=== PATIENT | female | born 2000 | race Caucasian/White ===

== ENCOUNTER 2021-12-12 13:22 | Outpatient (REF) | payer MEDICAID, SELFPAY ==
--- NOTE | 2021-12-12 12:20 | PAPFT_PTH ---
PATIENT: Elise Cotto LOC: [facility] U#:[id number] AGE/SX: 21/F ROOM: RE12/12/[address]: Erin Díaz MD : 2000 BED: DIS: 12/12/2021 SPEC #: [id number] RECD: 12/12/21 17:08 STATUS: ADDY DEL ANGEL #: [id number] TROY: 12/12/21 12:[address]: Erin Díaz DEPT: [facility] Cytology RECD BY: Lisa Butcher Tissues: 1 - CX/ENDOCX FOR PAP SMEARS Procedures: PAP THIN PREP/UVM Screening Comments: [id number] (CHLAMYDIA/GC)
[2021-12-16 08:01] LABS: Chlamydia Result Negative (Negative); GC Result Negative (Negative)
== END 2021-12-12 13:23 | disposition home or self-care (01) ==
LOC: LBN 13:22
PROVIDERS: PCP Obstetrics & Gynecology; Visit Provider Obstetrics & Gynecology
DX: Z11.3 Encounter for screening for infections with a predominantly sexual mode of transmission (principal); Z12.4 Encounter for screening for malignant neoplasm of cervix
CPT/HCPCS: 87491; 87591; 88142

== ENCOUNTER → 2022-02-03 00:48 | Outpatient (CLI) | payer MEDICAID, SELFPAY ==
--- OUTSIDE RECORDS SUMMARY | 2022-02-03 00:53 | XMS_ITS | Clinical Summary ---
:2000 Author Organization [facility] Address [address] [place] [address] Care Team Providers Name Role Phone Unknown, Provider Primary Care Provider Encounters Date Type Specialty Care Team Description 12/12/2021 Lab Requisition Clinical Laboratory Erin Díaz En counter for other MD Jam general examina tion from Last 3 Months Social History Tobacco Use Types Packs/Day Years Used Date Never Assessed Sex Assigned at Date Recorded Not on file Plan of Treatment Health Maintenance Due Date Last Done Comments Hepatitis C Screen 2000 COVID-19 Vaccine (1) 02/08/2004 Procedures Procedure Name Priority Date/Time Associated Diagnosis Comme nts PAP TEST Today 12/12/2021 12:20 Encounter for other Resu lts for this EDT general examination procedur e are in the results section. CHLAMYDIA/N. Today 12/12/2021 12:20 Results for this GONORRHOEAE EDT procedure are i n AMPLIFIED RNA, the results THINPREP section. from Last 3 Months Results PAP TEST (12/12/2021 12:20 EDT) Specimens A. Cervix and/or [facility] Endocervix , ThinPrep CENTER Imaging System with LABORATORY Manual Evaluation SERVICES Specimen Adequacy Satisfactory for [facility] Evaluation - CENTER transformation zone LABORATORY component present SERVICES General Negative for [facility] intraepithelial CENTER lesion or malignancy LABORATORY SERVICES Descriptive Shift in eze [facility] Diagnosis present suggestive of CENTER bacterial vaginosis. LABORATORY SERVICES Attestation . [facility] signed by JANIS Roy CT(ASCP ) on SERVICES 12/19/2021 at 134 4 Clinical History See below [facility] Performing Lab [facility] Scanned Images [facility] Specimen Pap Test - Cervix and/or Endocervix Performing Organization Address City/State/ZIP Code Phon e Number [facility] [address] [place] [address] SERVICES CHLAMYDIA/N. GONORRHOEAE AMPLIFIED RNA, THINPREP (12/12/2021 12:20 EDT) Pathologist Sig nature Gonococcus Result Negative Negative [facility] Chlamydia Result Negative Negative [facility] Specimen Pap Test - Cervix and/or Endocervix Performing Organization Address City/State/ZIP Code Phon e Number [facility] [address] [place] [address] SERVICES from Last 3 Months Care Teams Sap Bw Bi Developer Relationship Specialty Start Date End Date Unknown, Provider, PCP - General 04/18/17
--- OUTSIDE RECORDS SUMMARY | 2022-02-03 00:53 | XMS_ITS | Encounter Summary ---
:2000 Author Organization [facility] Address [address] [place] [address] Care Team Providers Name Role Phone Unknown, Provider Primary Care Provider Encounter Details Date Type Department Care Team Description 04/18/2017 Historical Results [facility] - Joselyn Roy Only [facility] - Main [place] us Brock MD [address] [place] [address] [place], [place] [phone] Social History Tobacco Use Types Packs/Day Years Used Date Never Assessed Sex Assigned at Date Recorded Not on file documented as of this encounter Plan of Treatment Not on filedocumented as of this encounter Procedures Procedure Name Priority Date/Time Associated Comments Diagnosis COMPLETE BLOOD COUNT Routine 04/18/2017 21:21 Res ults for this WITH DIFFERENTIAL EDT procedure are in (AUTO) the results section. THYROID CASCADE Routine 04/18/2017 21:21 Results for this EDT procedure are i n the results section. DRUG SCREEN, Routine 04/18/2017 21:21 Results for this PRESCRIPTION/OTC, EDT procedure are in URINE the results section. C REACTIVE PROTEIN Routine 04/18/2017 21:21 Resul ts for this EDT procedure are i n the results section. COMPREHENSIVE Routine 04/18/2017 21:21 Results fo r this METABOLIC PANEL (CMP) EDT proced ure are in the results section. documented in this encounter Results THYROID CASCADE (04/18/2017 21:21 EDT) Pathologist Sig nature TSH 1.63 0.35 - 5.50 uIU/mL [facility] Specimen Narrative [facility] - 017 22:42 EDT Does PT Have a Latex Allergy? NO Performing Organization Address City/State/ZIP Code Phon e Number [facility] [address] [place] [address] [facility] (ABNORMAL) C REACTIVE PROTEIN (04/18/2017 21:21 EDT) Pathologist Sig nature C-Reactive Protein 3.14 (H) 0.0 - 3.0 mg/L [facility] Specimen Narrative [facility] - 017 22:42 EDT Does PT Have a Latex Allergy? NO Performing Organization Address City/State/ZIP Code Phon e Number [facility] [address] [place] [address] [facility] (ABNORMAL) COMPREHENSIVE METABOLIC PANEL (CMP) (04/18/2017 21:21 EDT) ALBUMIN - [facility] 3.7 3.4 - 5.0 [facility] g/dL [facility] ALKALINE 99 41 - 126 U/L [facility] PHOSPHATASE - [facility] BILIRUBIN TOTAL 0.4 0.0 - 1.0 [facility] mg/dL [facility] BUN - [facility] 10 7 - 18 mg/dL [facility] CALCIUM - [facility] 8.7 8.5 - 10.1 [facility] mg/dL [facility] Chloride 104 98 - 107 [facility] mEq/L [facility] CO2 Total 27 21 - 32 mEq/L [facility] CREATININE 0.59 0.5 - 1.3 [facility] mg/dL [facility] eGFR >60 [facility] Comment: [facility] Chronic renal impairment is defined as GFR <60 Multiply result by 1.210 for patients . eGFR calculated using the IDMS-traceable MDRD Study Equation. ??(effective 05/21/2014) Anion Gap 7 5 - 15 [facility] GLUCOSE - [facility] 126 (H) 70 - 100 [facility] mg/dL [facility] Potassium 3.4 (L) 3.5 - 5.0 [facility] mEq/L [facility] Sodium 138 135 - 145 [facility] mEq/L [facility] TOTAL PROTEIN - 8.4 (H) 6.4 - 8.2 [facility] gm/dl [facility] SGOT/AST - [facility] 17 10 - 37 U/L [facility] SGPT/ALT - [facility] 33 12 - 78 U/L [facility] Specimen Narrative [facility] - 017 22:42 EDT Does PT Have a Latex Allergy? NO Performing Organization Address City/State/ZIP Code Phon e Number [facility] [address] [place], [place] [id number] [place] [address] LAB (ABNORMAL) COMPLETE BLOOD COUNT WITH DIFFERENTIAL (AUTO) (04/18/2017 21:21 EDT) Pathologist Sig nature ABSOLUTE NEUTROPHIL 6.00 1.7 - 7.0 [facility] COUN - [facility] 10e3/ul [facility] BASO # - [facility] 0.04 0.0 - 0.3 [facility] 10e3/uL [facility] BASO % - [facility] 0 0 - 2 % [facility] EOS # - [facility] 0.93 (H) 0.05 - 0.5 [facility] 10e3/uL [facility] EOS % - [facility] 8 (H) 0 - 5 % [facility] GRAN % - [facility] 50 40 - 80 % [facility] HEMATOCRIT - [facility] 40.3 34.0 - 47.0 % [facility] HEMOGLOBIN - [facility] 13.0 11.2 - 15.7 [facility] g/dl [facility] IG# - [facility] 0.04 0 - 0.07 [facility] 10e3/uL [facility] IG% - [facility] 0.3 0 - 0.9 % [facility] LYMPH # - [facility] 4.28 (H) 0.9 - 2.9 [facility] 10e3/uL [facility] LYMPH% - [facility] 36 20 - 40 % [facility] MEAN CORPUSCULAR HGB 26.8 26 - 34 pg [facility] MEAN CORPUSCULAR HGB 32.3 31 - 36 g/dL [facility] CONC [facility] LAB MEAN CELL VOLUME - 83.1 77 - 100 fl [facility] MONO # - [facility] 0.78 0.3 - 0.9 [facility] 10e3/uL [facility] MONO% - [facility] 7 0 - 12 % [facility] PLATELET COUNT 444 (H) 150 - 400 [facility] 10e3/ul [facility] RED BLOOD COUNT - 4.85 3.8 - 5.2 [facility] 10e6/ul C[facility] LAB RED CELL DISTRI WIDTH 13.9 11.8 - 15.6 % [facility] ME D - [facility] LAB WHITE BLOOD COUNT - 12.1 (H) 3.5 - 10.5 [facility] 10e3/ul [facility] LAB Specimen Narrative [facility] - 017 22:06 EDT Does PT Have a Latex Allergy? NO Performing Organization Address City/State/ZIP Code Phon e Number [facility] [address] [place], [place] [phone] [place] [address] LAB (ABNORMAL) DRUG SCREEN, PRESCRIPTION/OTC, URINE (04/18/2017 21:21 EDT) AMPHETAMINES NEG NEG [facility] BARBITURATES,UR - NEG NEG [facility] BENZODIAZEPINES NEG NEG [facility] COCAINE,URINE - [facility] NEG NEG [facility] MAMP NEG NEG [place] (METHAMPHETAMINES - [facility] CENTER LAB MARIJUANA,URINE - POS (A) NEG [facility] MTD (METHADONE) - NEG NEG [facility] OPIATES,URINE - [facility] NEG NEG [facility] OXY (OXYCODONE) - NEG NEG [facility] PCP (PHENCYCLIDINE) NEG NEG [place] [facility] PROPOXYPHENE (PPX) - NEG NEG [facility] TRICYCLIC NEG NEG [place] ANTIDEPRESSANTS - Comment: [facility] Drug Class ?Cutoff Concent ration CENTER LAB Amphetamines (AMP) ?500 ng /ml Barbiturates (BAR) ?200 ng /ml Benzodiazepines (BZO) ? 150 ng/m l Cocaine (TONE) ? 150 ng/ml Methamphetamine (mAMP) ?500 ng/m l Methadone (MTD) ? 200 n g/ml Opiates (OPI) ? 100 ng/ml Oxycodone (OXY) ? 100 n g/ml Phencyclidine (PCP) ?25 ng /ml Tetrahydrocannabinol (THC) ? 50 ng/ml Propoxyphene (PPX) ?300 ng /ml Tricyclic antidepressants (TCA) ? 300 ng/ml This is a screening assay only, intended for use in cl inical monitoring or management of patients. False positive o r false negative results can occur. If confirmation test ing is needed, please call the lab. Specimens are retained in the laboratory for 7 days. Specimen Narrative [facility] - 017 22:21 EDT Does PT Have a Latex Allergy? NO Performing Organization Address City/State/ZIP Code Phon e Number [facility] [address] LAB documented in this encounter Visit Diagnoses Not on filedocumented in this encounter Care Teams Supervisor Rice Milling Relationship Specialty Start Date End Date Unknown, Provider, PCP - General 04/18/17 documented as of this encounter
--- OUTSIDE RECORDS SUMMARY | 2022-02-03 00:53 | XMS_ITS | Encounter Summary ---
:2000 Author Organization [facility] Address [address] [place] [address] Care Team Providers Name Role Phone Unknown, Provider Primary Care Provider Encounter Details Date Type Department Care Team Description 12/12/2021 Lab Requisition [facility] Erin Díaz, Encounter for other Pathology & MD general examination Laboratory Medicine [address] [place], [place] [address] [facility] [id number] [place], [place] [id number] Social History Tobacco Use Types Packs/Day Years Used Date Never Assessed Sex Assigned at Date Recorded Not on file documented as of this encounter Plan of Treatment Not on filedocumented as of this encounter Procedures Procedure Name Priority Date/Time Associated Diagnosis Comme nts PAP TEST Today 12/12/2021 12:20 Encounter for other Resu lts for this EDT general examination procedur e are in the results section. CHLAMYDIA/N. Today 12/12/2021 12:20 Results for this GONORRHOEAE EDT procedure are i n AMPLIFIED RNA, the results THINPREP section. documented in this encounter Results PAP TEST (12/12/2021 12:20 EDT) Specimens A. Cervix and/or [facility] Endocervix , ThinPrep CENTER Imaging System with LABORATORY Manual Evaluation SERVICES Specimen Adequacy Satisfactory for [facility] Evaluation - CENTER transformation zone LABORATORY component present SERVICES General Negative for [facility] Categorization intraepithelial CENTER lesion or malignancy LABORATORY SERVICES Descriptive Shift in eze [facility] Diagnosis present suggestive of CENTER bacterial vaginosis. LABORATORY SERVICES Attestation . [facility] signed by JANIS Roy CT(ASCP ) on SERVICES 12/19/2021 at 134 4 Clinical History See below [facility] Performing Lab [facility] Scanned Images [facility] Specimen Pap Test - Cervix and/or Endocervix Performing Organization Address City/State/ZIP Code Phon e Number [facility] [address] [place] [address] SERVICES CHLAMYDIA/N. GONORRHOEAE AMPLIFIED RNA, THINPREP (12/12/2021 12:20 EDT) Pathologist Sig nature Gonococcus Result Negative Negative [facility] Chlamydia Result Negative Negative [facility] SERVICES Specimen Pap Test - Cervix and/or Endocervix Performing Organization Address City/[facility]/ZIP Code Phon e Number [facility] [address] [place] [address] SERVICES documented in this encounter Visit Diagnoses Diagnosis Encounter for other general examination documented in this encounter Care Teams Transit Vehicle Inspector Relationship Specialty Start Date End Date Unknown, Provider, PCP - General 04/18/17 documented as of this encounter
--- NOTE | 2022-02-03 06:45 | DI.US_ITS ---
Exam(s) US PELVIS TRANSVAGINAL EXAM: US PELVIS TRANSVAGINAL CLINICAL HISTORY: infertility, N97.9 TECHNIQUE: Ultrasound of the pelvis was performed both transabdominal and transvaginal. COMPARISON: No exams were available for comparison FINDINGS: UTERUS: Retroverted. There is fluid around the fundus the uterus. Measures 5.6 cm length x 3.5 cm AP x 4.6 cm wide. There are no uterine fibroids. Endometrial thickness measures 7-8 mm. There is no fluid in the endometrial canal. CERVIX: There are no obvious nabothian cysts. RIGHT OVARY: Measures 3 x 2.8 x 1.8 cm No significant cysts nor masses evident in the right ovary. LEFT OVARY: Measures 4 x 2.9 x 4.6 cm Contains a 1.8 x 2.2 x 2.4 cyst as well as a 1.6 x 1.6 x 1.7 cm complex avascular cyst CUL-DE-SAC: There is fluid in both adnexal regions. Also round the fundus of the uterus IMPRESSION: 1. Retroverted nongravid uterus 2. Two findings in left ovary, including a an 18 x 22 millimeter simple cyst as well as a more comple x cyst measuring 1.6 x 1.7 cm. There is some fluid in the adnexal regions and around the fundus of t he uterus. 3. Although patient appears to claims to have had right oophorectomy, this does not appear to be the case here. There is a structure in the right adnexa which has appearance of a right ovary containing multiple small 5 sub cm follicles. DATA REPOSITORY:
== END ==
PROVIDERS: PCP Family Medicine; Visit Provider Obstetrics & Gynecology
DX: N97.9 Female infertility, unspecified (principal); N83.292 Other ovarian cyst, left side
CPT/HCPCS: 76830; 76856

== ENCOUNTER 2022-11-27 00:06 | Outpatient (CLI) | payer MEDICAID, SELFPAY ==
--- NOTE | 2022-11-27 10:45 | DI.RAD_ITS ---
Exam(s) RF HYSTEROSALPINGOGRAM EXAM: RF HYSTEROSALPINGOGRAM CLINICAL HISTORY: infertility,N97.9 TECHNIQUE: 2D and realtime digital imaging was performed. CONTRAST MATERIAL: Water soluble contrast was administered. COMPARISON: No exams were available for comparison FINDINGS: Fluoroscopically-guided hysterosalpingogram. The cervical opening was cannulated by Dr. Madrid. Th en under fluoroscopic guidance, water-soluble contrast was injected in a retrograde fashion. The uterus fills normally, with no evidence of contour abnormality, filling defect, septum, stricture , mass, or bicornuate configuration. There was prompt visualization of the fallopian tubes. There wa s contrast spill from the left fallopian tube. No definite spill seen from right however there was s ignificant contrast surrounding the tube which could obscure spilling.. IMPRESSION: Left fallopian tube patent. No definite spill from right fallopian tube. RADIATION DOSE DELIVERED: samuel Salter=23.8 mGy
[2022-11-27] MEDS: Omnipaque 350 MG/ML 50 ML BTL IJ (10:48)
== END 2022-11-27 00:26 ==
LOC: DI 00:07
PROVIDERS: PCP Family Medicine; Visit Provider Obstetrics & Gynecology
DX: N97.9 Female infertility, unspecified (principal)
CPT/HCPCS: 58340; 74740; Q9967

== ENCOUNTER 2024-04-03 10:57 | Outpatient (CLI) | payer MEDICAID, SELFPAY ==
[2024-04-05 15:28] LABS: Antimullerian Hormone 6.1 ng/mL (0.89-9.9)
== END 2024-04-03 10:58 | disposition home or self-care (01) ==
LOC: LBO 10:57
PROVIDERS: PCP Family Medicine; Visit Provider Obstetrics & Gynecology Gynecology
DX: E66.9 Obesity, unspecified (principal); Z31.9 Encounter for procreative management, unspecified; Z01.419 Encounter for gynecological examination (general) (routine) without abnormal findings
CPT/HCPCS: 36415; 83520

== ENCOUNTER 2024-07-17 02:39 | Outpatient (CLI) | payer MEDICAID, SELFPAY ==
[2024-07-17 10:28] LABS: Panorama Kit Sent via Fed Ex
[2024-07-17 10:37] LABS: Abs Immature Grans 0.02 10^3/uL (0.0-0.06); Absolute Basophil Count 0.05 10^3/uL (0.0-0.2); Absolute Eosinophil Count 0.07 10^3/uL (0.0-0.7); Absolute Monocyte Count 0.57 10^3/uL (0.1-0.8); Absolute Neutrophil Count 4.82 10^3/uL (1.2-6.7); Basophils % 0.6 %; Eosinophils % 0.9 %; HCT 36.6 % (36.0-46.0); HGB 12.1 g/dL (11.2-15.7); Immature Grans % 0.2 %; Lymphocytes % 31.1 %; MCH 27.2 pg (27.0-33.0); MCHC 33.1 % (32.0-36.0); MCV 82 fL (80-95); MPV 9.9 fL (8.0-11.0); Monocytes % 7.1 %; Neutrophils % 60.1 %; Platelet Count 302 10^3/uL (130-400); RBC 4.45 10^6/uL (3.93-5.22); RDW 13.2 % (11.7-14.6); RDW-SD 39.3 fL; WBC 8.03 10^3/uL (4.4-10.8)
[2024-07-17 10:55] LABS: ALT 13 U/L (14-59); AST 7 U/L (15-37); Albumin 3.3 g/dL (3.4-5.0); Alkaline Phosphatase 60 U/L (46-116); Anion Gap 10.4 mmol/L (3-11); BUN 5 mg/dL (7-18); CO2 23.6 mmol/L (21.0-32.0); CREATININE 0.5 mg/dL (0.55-1.02); Calcium 8.6 mg/dL (8.5-10.1); Chloride 106 mmol/L (98-107); Glucose 67 mg/dL (74-106); Potassium 3.6 mmol/L (3.5-5.1); Sodium 140 mmol/L (136-145); Total Protein 6.8 g/dL (6.4-8.2)
[2024-07-17 10:56] LABS: Glucose,1 Hr (Glucola) 67 mg/dL (80-140)
[2024-07-17 18:33] LABS: Hepatitis B Surface Ag Negative (Negative)
[2024-07-17 19:05] LABS: Hepatitis C Ab w Rflx HCV PCR Negative (Negative)
[2024-07-17 19:09] LABS: HIV-1/2 Ag & Ab Screen Negative (Negative)
[2024-07-18 10:44] LABS: Varicella IgG Antibody Positive (See Note)
[2024-07-18 14:29] LABS: Rubella IgG Ab (UVM) Equivocal (See Note)
[2024-07-20 16:00] LABS: Syphilis IgG w/Reflex Nonreactive (Nonreactive)
[2024-07-20 17:54] LABS: Specimen WB Whole Blood
[2024-08-01 12:28] LABS: Result Summary NEGATIVE; Specimen WB Whole Blood
== END 2024-07-17 02:40 | disposition home or self-care (01) ==
LOC: LBO 02:39
PROVIDERS: PCP Family Medicine; Visit Provider Advanced Practice Midwife
DX: Z34.91 Encounter for supervision of normal pregnancy, unspecified, first trimester (principal); Z98.84 Bariatric surgery status
CPT/HCPCS: 36415; 80053; 81220; 81222; 81329; 82950; 86787; 86803; 86850; 86900; 86901; 87340; 87389; 85025; 86762; 86780

== ENCOUNTER 2024-07-17 10:35 | Outpatient (REF) | payer MEDICAID, SELFPAY ==
[2024-07-18 12:53] LABS: Chlamydia Result Negative (Negative); GC Result Negative (Negative)
== END 2024-07-17 10:36 | disposition home or self-care (01) ==
LOC: LBN 10:35
PROVIDERS: PCP Family Medicine; Visit Provider Advanced Practice Midwife
DX: O26.891 Other specified pregnancy related conditions, first trimester (principal); N89.8 Other specified noninflammatory disorders of vagina; Z34.91 Encounter for supervision of normal pregnancy, unspecified, first trimester
CPT/HCPCS: 87491; 87591; 87086; 87480; 87510; 87660

== ENCOUNTER 2024-08-14 14:45 | Outpatient (CLI) | payer MEDICAID, SELFPAY ==
[2024-08-16 14:14] LABS: AFP 34.3 ng/mL; Cigarette smoking status non-Smoker; GA used in risk estimate Dates estimate; IVF Pregnancy No; Initial or repeat testing Initial testing; Insulin dependent diabetes No; Maternal Weight 215 lbs; Number of Fetuses 1; Physician Phone Number 802-748-7300; Prev Pregnancy w/NTD No; RECOMMENDED FOLLOW UP None.; Results Summary Normal risk
== END 2024-08-14 14:46 | disposition home or self-care (01) ==
LOC: LBO 14:45
PROVIDERS: PCP Family Medicine; Visit Provider Advanced Practice Midwife
DX: Z34.91 Encounter for supervision of normal pregnancy, unspecified, first trimester (principal)
CPT/HCPCS: 36415; 82105

== ENCOUNTER 2024-09-18 01:30 | Outpatient (CLI) | payer MEDICAID, SELFPAY ==
--- NOTE | 2024-09-18 07:15 | DI.US_ITS ---
Exam(s) US OB 2-3 TRIMESTER EXAM: US OB 2-3 TRIMESTER CLINICAL HISTORY: ,HIGH BMI,Z34.90. TECHNIQUE: Transabdominal obstetrical ultrasound performed. COMPARISON: US POCUS EXAM from 06/19/2024 FINDINGS: Number of fetuses: 1 position: Variable Placental location: Anterior no evidence of previa. BIOMETRIC DATA: BPD: , 22+1 weeks HC: 22+2 weeks, AC: 21+4 weeks, FL: 21+3 weeks, Cisterna magna: 3.5 mm Cerebellum: 2.0 cm Lateral ventricle: 5.1 mm EFW: 440, 72 percentile, Composite Age: 21+ 6 weeks RITESH: 23 January 2025 Heart Rate: 142 Amniotic fluid: Amount of fluid is visual within normal limits. ANATOMICAL SURVEY: Four-chambered heart: Unremarkable. LVOT: Unremarkable. RVOT: Unremarkable. Left-sided stomach: Unremarkable. urinary bladder: Unremarkable. Bilateral kidneys: Unremarkable. Three-vessel cord: Unremarkable. Cord insertion: Unremarkable. Posterior fossa:Unremarkable. ventricles: Unremarkable. nose: Unremarkable. lips: Unremarkable. palate: Unremarkable. spine: Unremarkable. Two arms : Unremarkable. Two legs: The right lower extremity was well seen. The left lower leg and foot or suboptimally visua lized. IMPRESSION: 1. Single live intrauterine gestation as above. 2. Normal anatomic survey. Left lower extremity was suboptimally visualized. The patient is s cheduled to return 25 September 2024 for additional imaging. Additional imaging needed DATA REPOSITORY:
== END 2024-09-18 01:50 ==
PROVIDERS: PCP Family Medicine; Visit Provider Advanced Practice Midwife
DX: Z34.92 Encounter for supervision of normal pregnancy, unspecified, second trimester (principal); Z3A.22 22 weeks gestation of pregnancy
CPT/HCPCS: 76805

== ENCOUNTER 2024-09-25 03:16 | Outpatient (CLI) | payer MEDICAID, SELFPAY ==
--- NOTE | 2024-09-25 | DI.US_ITS ---
Exam(s) US OB F/U FACIAL/LVOT/RVOT EXAM: US OB F/U FACIAL/LVOT/RVOT CLINICAL HISTORY: F/u from 09/18/24 US for Lt lower extremity. TECHNIQUE: Transabdominal obstetrical ultrasound performed. COMPARISON: US US OB 2-3 TRIMESTER from 09/18/2024 FINDINGS: Number of fetuses: 1 position: Varied throughout the examination. Placental location: There is a grade 1 anterior placenta. No evidence of previa. anatomy: Both lower extremities including feet were visualized and are unremarkable. Heart Rate: 137 bpm IMPRESSION: 1. Single live intrauterine gestation as above. 2. This is a limited examination for completion of the anatomic survey. 3. Both lower extremities, including feet, were visualized and are unremarkable. DATA REPOSITORY:
== END 2024-09-25 03:36 ==
LOC: DI 03:16
PROVIDERS: PCP Family Medicine; Visit Provider Advanced Practice Midwife
DX: Z34.82 Encounter for supervision of other normal pregnancy, second trimester (principal); Z3A.24 24 weeks gestation of pregnancy
CPT/HCPCS: 76815

== ENCOUNTER 2024-11-07 12:23 | Outpatient (CLI) | payer MEDICAID, SELFPAY ==
[2024-11-07 14:03] LABS: HCT 32.8 % (36.0-46.0); HGB 10.8 g/dL (11.2-15.7); MCH 28.3 pg (27.0-33.0); MCHC 32.9 % (32.0-36.0); MCV 86 fL (80-95); MPV 9.9 fL (8.0-11.0); Platelet Count 300 10^3/uL (130-400); RBC 3.81 10^6/uL (3.93-5.22); RDW 12.8 % (11.7-14.6)
[2024-11-07 14:12] LABS: Hemoglobin A1C 5.1 % (<5.7)
[2024-11-07 14:56] LABS: ALT 30 U/L (14-59); AST 16 U/L (15-37); Albumin 2.8 g/dL (3.4-5.0); Alkaline Phosphatase 96 U/L (46-116); Anion Gap 6.3 mmol/L (3-11); BUN 5 mg/dL (7-18); Bilirubin, Total 0.4 mg/dL (0.2-1.0); CO2 24.7 mmol/L (21.0-32.0); CREATININE 0.5 mg/dL (0.55-1.02); Calcium 8.5 mg/dL (8.5-10.1); Chloride 108 mmol/L (98-107); Glucose 151 mg/dL (74-106); Potassium 3.2 mmol/L (3.5-5.1); Sodium 139 mmol/L (136-145); Total Protein 6.5 g/dL (6.4-8.2); Vitamin B12 189 pg/mL (193-986)
[2024-11-14 16:44] LABS: 1,25-Dihydroxyvitamin D 141 pg/mL (18-78)
== END 2024-11-07 12:24 | disposition home or self-care (01) ==
PROVIDERS: Advanced Practice Midwife; PCP Family Medicine; Visit Provider Advanced Practice Midwife
DX: Z34.92 Encounter for supervision of normal pregnancy, unspecified, second trimester (principal)
CPT/HCPCS: 36415; 80053; 85027; 82607; 82652; 82746; 83036

== ENCOUNTER 2024-12-04 02:54 | Outpatient (CLI) | payer MEDICAID, SELFPAY ==
--- NOTE | 2024-12-04 07:12 | DI.US_ITS ---
Exam(s) US OB RAIMUNDO WEIGHT EXAM: US OB RAIMUNDO WEIGHT CLINICAL HISTORY: EFW for H/O gastric bypass,Z34.90,Z98.84. TECHNIQUE: Transabdominal obstetrical ultrasound performed. COMPARISON: US POCUS EXAM from 06/19/2024 US US OB 2-3 TRIMESTER from 09/18/2024 US US OB F/U FACIAL/LVOT/RVOT from 09/25/2024 FINDINGS:: Number of fetuses: 1 position: CEPHALIC Placental location: ANTERIOR No evidence of previa. BIOMETRIC DATA: BPD: 8.43cm, 34weeks HC: 31.25cm, 35weeks AC: 28.06cm, 32weeks 1day FL: 6.23cm, 32weeks 2days EFW: 2,008.52g, 4lb 7.57oz, 54.1% Composite Age: 33weeks 3days RITESH: 01/19/2025 Heart Rate: 132bpm Amniotic fluid index: 13.22cm. Visually, amount of fluid is within normal limits. IMPRESSION: size and weight are within the expected range. DATA REPOSITORY:
== END 2024-12-04 03:14 ==
PROVIDERS: PCP Family Medicine; Visit Provider Advanced Practice Midwife
DX: Z34.93 Encounter for supervision of normal pregnancy, unspecified, third trimester (principal); Z98.84 Bariatric surgery status; Z3A.32 32 weeks gestation of pregnancy
CPT/HCPCS: 76816

== ENCOUNTER 2025-01-01 00:07 | Outpatient (CLI) | payer MEDICAID, SELFPAY ==
--- NOTE | 2025-01-01 07:15 | DI.US_ITS ---
Exam(s) US OB RAIMUNDO WEIGHT EXAM: US OB RAIMUNDO WEIGHT CLINICAL HISTORY: h/o gastric bypass,,z98.84,z34.90. TECHNIQUE: Transabdominal obstetrical ultrasound performed. COMPARISON: US US OB RAIMUNDO WEIGHT from 12/04/2024 FINDINGS: Number of fetuses: 1 position: CEPHALIC Placental location: There is a grade 2 anterior placenta. No evidence of previa. BIOMETRIC DATA: BPD: 9.19cm, 37weeks 2days HC: 33.06cm, 37weeks 5days AC: 32.6cm, 36weeks 4days FL: 6.85cm, 35weeks 1day EFW: 2,924.82g, 6lb 8.06oz, 58.8% Composite Age: 36weeks 5days RITESH: 01/24/2025 Heart Rate: 113bpm Amniotic fluid index: 21.12cm. The largest pocket is 7.0 cm. IMPRESSION: 1. Single live intrauterine gestation as above. 2. Estimated weight is 2925gms. This is the 59th percentile. 3. Amniotic fluid index is 21 cm. The largest pocket is 7.0 cm. DATA REPOSITORY:
== END 2025-01-01 00:27 ==
LOC: DI 00:07
PROVIDERS: PCP Family Medicine; Visit Provider Advanced Practice Midwife
DX: Z34.93 Encounter for supervision of normal pregnancy, unspecified, third trimester (principal); Z98.84 Bariatric surgery status; Z3A.36 36 weeks gestation of pregnancy
CPT/HCPCS: 76816

== ENCOUNTER 2025-01-01 10:05 | Outpatient (CLI) | payer MEDICAID, SELFPAY ==
[2025-01-01 10:18] VITALS: BP 122/68; PULSE 73; TEMP 36.8
[2025-01-01 10:37] LABS: HCT 28.3 % (36.0-46.0); HGB 9.1 g/dL (11.2-15.7); MCH 26.5 pg (27.0-33.0); MCHC 32.2 % (32.0-36.0); MCV 83 fL (80-95); MPV 10.5 fL (8.0-11.0); Platelet Count 288 10^3/uL (130-400); RBC 3.43 10^6/uL (3.93-5.22); RDW 12.6 % (11.7-14.6); RDW-SD 38.1 fL; WBC 9.88 10^3/uL (4.4-10.8)
[2025-01-01 10:50] VITALS: BP 122/68; PULSE 73
[2025-01-01 11:04] LABS: COMMENT (LAB VIEW ONLY) 97.85 mg/dL; PROTEIN 16.5 mg/dL; Prot/Crea Ur Ratio 0.16
[2025-01-01 11:09] LABS: ALT 15 U/L (14-59); AST 9 U/L (15-37); Albumin 2.3 g/dL (3.4-5.0); Alkaline Phosphatase 110 U/L (46-116); Anion Gap 8.6 mmol/L (3-11); BUN 6 mg/dL (7-18); Bilirubin, Total 0.3 mg/dL (0.2-1.0); CO2 24.4 mmol/L (21.0-32.0); CREATININE 0.3 mg/dL (0.55-1.02); Calcium 8.3 mg/dL (8.5-10.1); Chloride 106 mmol/L (98-107); Estimated GFR 150.88 (mL/min/1.73m2); Glucose 83 mg/dL (74-106); Potassium 3.9 mmol/L (3.5-5.1); Sodium 139 mmol/L (136-145); Total Protein 5.8 g/dL (6.4-8.2); Uric Acid 5.6 mg/dL (2.6-6.0)
[2025-01-01] MEDS: IRON SUCROSE COMPLEX 200 MG in Normal Saline 100 ML 400 MG IVPB (11:17)
[2025-01-01 11:23] LABS: ROM Plus Negative
[2025-01-01 11:51] LABS: Lab Add On Test DONE
[2025-01-01 12:07] LABS: Bilirubin Negative (Negative); Blood Negative (Negative); Clarity Clear (Clear); Glucose Negative (Negative); Ketones Negative (Negative); Leukocyte Esterase Trace (Negative); Nitrite Negative (Negative); Specific Gravity 1.015 (1.005-1.025); Urobilinogen 0.2 mg/dL (Up to 0.2); pH 7.5 (5-8)
[2025-01-01 12:16] LABS: Bacteria Few HPF (Negative); C & S Indicated? No/Sq. Contamination; Casts Negative LPF (Negative); Crystals Negative HPF (Negative); Epithelial Cells Moderate HPF (Negative); Mucus Negative (Negative); RBC 0-2 HPF (0-2)
--- NOTE | 2025-01-01 22:55 | W.OBNST ---
Date of service: 01/01/25 Time of Service: 13:00 NST Evaluation Reason for NST Reasons for Nonstress Test: OTHER, SEE COMMENT Reason for NST Other: R/O labor Gestational Age Gestational Age in Weeks and Days: 36 Weeks and 1Days Test and Monitor Explained Test/Monitor Explained: Test Explained, Monitor Explained and Patient Verbalized Understanding Vital Signs Blood Pressure: 122/68 Pulse: 73 Temperature: 98.2 F NST Information Date on Monitor: 01/01/25 Time on Monitor: 10:10 Date off Monitor: 01/01/25 Time off Monitor: 11:30 Total Time on Monitor: 80 NST Interventions: None NST Evaluation Patient States Movement: Present FHR Baseline: 130 Variability: Moderate 6-25 bpm Accelerations: 15x15 Decelerations: None NST Results: Reactive Note Ultrasound Done: N/A. NST Note Note: Elise was seen for routine visit and reported decreased movement and cramping. No evidence of labor. cervix post, and closed. movement felt and reactive NST. Urinalysis neg. Her pain is epigastric and in right upper quadrant. outpatient US was ordered. preeclampsia labs WNL. Signs of labor reviewed. rest, tylenol and heat or ice for comfort. She was instructed to call with worsening symptoms. NST Reviewed and Verified by: Kaia Batista
[2025-01-01 22:59] VITALS: BP 122/68; PULSE 73; TEMP 36.8
== END 2025-01-01 11:58 | disposition other institution (70) ==
LOC: BCD 10:07 → OBS 10:17
PROVIDERS: PCP Family Medicine; Visit Provider Advanced Practice Midwife
DX: O47.03 False labor before 37 completed weeks of gestation, third trimester (principal); Z3A.36 36 weeks gestation of pregnancy
CPT/HCPCS: 36415; 80053; 84112; 85027; 59025; 81003; 81015; 82565; 84156; 84550; J1756

== ENCOUNTER 2025-01-01 10:26 | Outpatient (REF) | payer MEDICAID, SELFPAY | END 2025-01-01 10:27 | disposition home or self-care (01) | LOC: LBN 10:26 | PROVIDERS: PCP Family Medicine; Visit Provider Advanced Practice Midwife | DX: Z34.93 Encounter for supervision of normal pregnancy, unspecified, third trimester (principal) | CPT/HCPCS: 87081 ==

== ENCOUNTER 2025-01-01 21:12 | Observation (INO) | payer MEDICAID, SELFPAY ==
[2025-01-01 21:05] VITALS: BP 143/80; PULSE 82; RESP 18; TEMP 36.9
[2025-01-01] MEDS: Lactated Ringers 1,000 ML 125 ML IV (21:15)
[2025-01-01 21:24] VITALS: BP 143/80; PULSE 89; RESP 16; TEMP 36.9; O2SAT 99
[2025-01-01] MEDS: Ondansetron 4 MG/2 ML VIAL IVP (21:33)
[2025-01-01 21:36] LABS: Abs Immature Grans 0.06 10^3/uL (0.0-0.06); Absolute Basophil Count 0.04 10^3/uL (0.0-0.2); Absolute Lymphocyte Count 2.86 10^3/uL (1.2-3.4); Absolute Monocyte Count 0.76 10^3/uL (0.1-0.8); Basophils % 0.4 %; HCT 27.3 % (36.0-46.0); HGB 8.8 g/dL (11.2-15.7); Immature Grans % 0.6 %; Lymphocytes % 26.5 %; MCH 26.5 pg (27.0-33.0); MCHC 32.2 % (32.0-36.0); MCV 82 fL (80-95); MPV 10.7 fL (8.0-11.0); Neutrophils % 65.5 %; Platelet Count 265 10^3/uL (130-400); RBC 3.32 10^6/uL (3.93-5.22); RDW 12.6 % (11.7-14.6); RDW-SD 38.4 fL; WBC 10.81 10^3/uL (4.4-10.8)
[2025-01-01 21:37] LABS: Absolute Neutrophil Count 7.08 10^3/uL (1.2-6.7)
[2025-01-01 21:42] VITALS: BP 143/80; PULSE 89; TEMP 36.9
--- NOTE | 2025-01-01 21:55 | W.PM.OBHPL1 ---
Date of service: 01/01/25 Time of Service: 21:55 Assessment and Plan Assessment and plan (1) Right upper quadrant abdominal pain affecting : Status: Acute Assessment and plan: She is admitted for labs, IV fluid and pain management and a stat US in the morning. CMP WNL, WBC 10.8, platelets 265, Consult with Dr Hugo who will come in to [facility]. GGT and LDH pending. OB-HPI Labor/Delivery History of Present Illness Reason for Visit: right upper quadrant pain Chief Complaint: Other (nausea and vomiting). RITESH Calculator Estimated Delivery Date Method Current WG Current Estimate 01/28/25 LMP (Certain) 36w 1d Other Estimates 01/29/25 Ultrasound #1 36w 0d Comments: Elise was seen for a routine appointment this morning and reported decreased movement and cramping. The cramping was in her upper right quadrant. Her BP was 140/80 at [facility] office last week and preeclampsia labs were drawn and were WNL. There was no evidence of labor. cervix was posterior and closed. Reactive NST. WBC 9.88. urinalysis neg protein creatinene ratio 0.16. She reported a family history of cholecystitis and a stat outpatient US was ordered at . She called this evening and reported worsening upper right quadrant pain and vomiting. History of Present Expected Delivery Route/Plan - CNM FOB - Reid Wagoner (1 son, healthy) BB yes to circ Rubella non-immune, offer vaccine (pt plans to accept) Not planning epidural but not opposed Specific Issues/Plan 1. BMI 32- early GTT=67, [id number] 2. cfDNA- low risk, CF- neg, SMA neg, AFP low risk 3. History of depression- sertraline 75 mg PO daily 4. History gastric bypass - early GTT -67 and CMP WNL 4a. Had vitamin levels @ [facility], repeated at [facility] 11/07 Vit D-141, B12 and Folate WNL 4b. unable to tolerate glucola @ 28 wks. Per UTD, Glucola not recommended d/t dumping syndrome. Plan 1wk QID fingersticks, Diabetes ED ordered. 4C. Labs 11/07-CMP-WNL, random glucose-151, iron 10.8, low b12, folate and Vit D 141, HbA1C 5.1 4d. recommended stopping Vit D supplement 4e. Growth Ultrasounds: 32-wk EFW: 54th%, RAIMUNDO=13. 4f. Declined nutrition counseling, Elevated fasting glucose readings on home testing. Elise does not wish to continue daily glucose testing, Met with Alex in dietary, food logs provided and CGM ordered 4g. Per MD consult 12/05- Referral to MFM at [facility] and [facility]JA[facility]KE visit at 32 weeks. RAIMUNDO WNL and EFW 53%ile, 4h. Scan at 36 wks for EFW in 59th percentile, RAIMUNDO 21, cephalic presentation 5. Increased preeclampsia risk - ASA recommended daily 6. Anemia - Hgb 10.8- daily iron recommended by Karissa Damian 6a. At 36 wks hgb is 8.6, to for iron infusion PFSH All Active Problems (Updated 01/01/25 @ 11:59 by Kaia Batista CNM) Right upper quadrant abdominal pain affecting (Acute) Anemia affecting first (Acute) H/O gastric bypass (Acute) Rouen-Y in 2022 Rubella non-immune status, antepartum (Acute) High BMI (Acute) 32 (Acute) Medical History (Updated 01/01/25 @ 11:59 by Kaia Batista CNM) Infertility History of hysterosalpingogram 11/2022. Patent L fallopian tube, ? R fallopian tube patent. Migraine Depression Surgical History (Updated 11/07/24 @ 08:26 by Suzan Warren) Hx of tonsillectomy H/O gastric bypass H/O oophorectomy Family History (Updated 07/17/24 @ 09:33 by Kaia Batista CNM) Sister Hip dysplasia Other Diabetes Heart disease Hyperlipidemia Hypertension Social History (Updated 04/17/22 @ 15:22 by Erin Díaz MD) Smoking/Tobacco Use Status: Former Tobacco Use Quit Date: 01/16/22 Quit status: has quit before Smoking risk assessment performed?: Yes Alcohol Intake: never Drug use: Never Household members: significant other current occupation: [employer] Associate Sexually active: Yes Do you think of yourself as: straight/heterosexual Current gender identity: female Do you feel safe in your relationship?: Yes Female Reproductive History Menstrual Age of Menarche: 12 Duration of menses: 3-5 days control method: none History History 1 Para 0 Hx # Term Pregnancies 0 Multiple births 0 Hx # Pregnancies 0 Ectopic pregnancies 0 AB induced 0 Hx Number of Living Children 0 AB spontaneous 0 Meds Allergies and Home Medications Allergies Allergy/AdvReac Type Severity Reaction Status Date / Time laundry detergent AdvReac Mild rash Uncoded 01/01/25 09:39 Home Medications ?Medication ?Instructions ?Recorded ?Confirmed ?Type vit 168-iron 27 mg-folic cap PO 05/25/24 01/01/25 History acid 800 mcg-omega3 235 mg capsule (One-A-Day -1) aspirin 81 mg tablet,delayed 162 mg (2 x 81 mg) PO DAILY #60 10/16/24 01/01/25 Rx release tabs sertraline 100 mg tablet 100 mg PO DAILY #90 tabs 10/16/24 01/01/25 Rx ondansetron 4 mg disintegrating 4 mg PO Q8H PRN nausea and 11/20/24 01/01/25 Rx tablet vomiting #2 tabs cholecalciferol (vitamin D3) 50 50 mcg PO DAILY #60 caps 12/14/24 01/01/25 Rx mcg (2,000 unit) capsule cyanocobalamin (vitamin B-12) 500 500 mcg PO DAILY 30 days #30 tabs 12/14/24 01/01/25 Rx mcg tablet ferrous sulfate 325 mg (65 mg 325 mg PO DAILY #60 tabs 12/14/24 01/01/25 Rx iron) tablet (Feosol) Exam Physical Exam Vital signs: Temp Pulse Resp BP Pulse Ox 98.4 F 89 16 143/80 H 99 01/01/25 21:24 01/01/25 21:24 01/01/25 21:24 01/01/25 21:24 01/01/25 21:24 Vital Signs Reviewed: Yes Constitutional Constitutional: moderate distress Detailed Labor and Delivery Exam Shine Score: Cervical Points Exam 0 1 2 3 Dilation Closed 1-2cm 3-4 cm 5-6cm Effacement 0-30% 40-50% 60-70% 80% Consistency Firm Medium Soft Station -3 -2 -1,0 +1,+2 Position Posterior Mid Anterior Fetus A Heart Rate Baseline: 120 Monitor Accelerations: 15 X 15 Monitor Decelerations: None Variability: Moderate (6-25 BPM) Presentation: Cephalic (by US today) Categories: Category I HEENT Exam HEENT Exam: Normal Respiratory Exam Respiratory Exam: Normal Cardiovascular Exam Cardiovascular Exam: Normal Abdominal Exam Abdominal Exam: Abnormal Detailed Abdominal Exam Abdominal: Present soft and tenderness; Absent rebound, guarding, firm or rigid Comments: Elise reports epigastric pain and mid back pain along her spine bilaterally. neg CVAT Exam Exam: Normal Extremities Exam Extremities Exam: Normal Skin Exam Skin Exam: Normal Psychiatric Exam Psychiatric Exam: Normal Results Abnormal Lab Findings: Abnormal Labs 01/01/25 21:25 WBC 10.81 H RBC 3.32 L Hgb 8.8 L Hct 27.3 L MCH 26.5 L Absolute Neutrophils 7.08 H Risk Assessment Risk for Shoulder Dystocia Historical/Initial OB: POSITIVE FOR: Pre- BMI>30; NEGATIVE FOR: Pelvic Abnormality, Previous Shoulder Dystocia or Previous Macrosomia 36 Weeks: NEGATIVE FOR: Current Gestational DM, EFW>4500gms or Maternal Weight Gain>40lbs Risk for Pre-Eclampsia Daily Dose ASA Indicated: Yes Yes, if one or more: NEGATIVE FOR: Hx Pre-E/Gest HTN, Chronic HTN, Multiple Gestation, Pre-gestational DM, Renal Disease, Systemic Lupus or APA Syndrome Yes, if 2 or more: POSITIVE FOR: Nulliparity, BMI>30 and Mother/Sister w/ Pre-E; NEGATIVE FOR: Age>= 35 yrs, >10yr btwn pregnancies, ethinicty or Previous IUGR Risk for Post- Hemorrhage Initial: NEGATIVE FOR: Multiple Gestation, Previous PPH, Known Clotting Deficiency, Grand Multiparity or Anticoagulation 36 Weeks: NEGATIVE FOR: Anemia, hgb<10, Low platelets(thrombocytopenia), Gestational HTN or Pre-E, Polyhydraminios or EFW>4500gms Risks Reviewed Risks Reviewed Upon Admission: Yes
[2025-01-01 22:00] LABS: ALT 20 U/L (14-59); AST 11 U/L (15-37); Albumin 2.3 g/dL (3.4-5.0); Alkaline Phosphatase 109 U/L (46-116); Anion Gap 8.9 mmol/L (3-11); BUN 5 mg/dL (7-18); Bilirubin, Total 0.3 mg/dL (0.2-1.0); CO2 25.1 mmol/L (21.0-32.0); CREATININE 0.4 mg/dL (0.55-1.02); Chloride 105 mmol/L (98-107); Estimated GFR 140.77 (mL/min/1.73m2); Glucose 76 mg/dL (74-106); Potassium 3.5 mmol/L (3.5-5.1); Sodium 139 mmol/L (136-145); Total Protein 5.9 g/dL (6.4-8.2)
[2025-01-01 22:07] LABS: Amylase 48 U/L (25-115); Lipase 26 U/L (<78)
[2025-01-01 22:37] LABS: Lab Add On Test DONE
[2025-01-01 22:49] LABS: GGT < 7 U/L (5-55)
[2025-01-01 22:52] LABS: LDH 101 U/L (81-234)
--- NOTE | 2025-01-01 23:38 | PGE_ITS ---
Date of Service Date of service: 01/01/25 Time of Service: 23:38 Subjective Subjective Interval history since last seen: 24 yo at 36 1/7 as dated by LMp equal to 8 wk US presents to triage for worsening epigastric pain. complicated by h/o leon-n-y (performed 2022), obesity (starting BMI 32), and acute on chronic anemia. She reports awakening this morning to a subtle midepigastric / RUQ pain with mild nausea. She ate a burrito and hash brown from [employer] which did not seem to effect the pain. She then came to the hospital for a routine visit where she was sent for an NST for complaints of decreased movement. NST was reactive and reassuring and SVE was non-laborous. Review of records from [facility] last week found an isolated BP of 140 / 80. BP on presentation, today, was 122/60. She was discharged to home with an ambulatory order for an abdominal US to evaluate her gallbladder the next day. She had half of a beagel twist due to a decreased appetite, and then called again this evening co mplaining of worsening of pain with nausea, vomiting, and dry heaving. Currently, she is found favoring laying on her right side. She is moaning with discomfort. On exam, her pain is localized mostly to the midepigastric and left side. Her abdomen is soft and non-distended. Bowel sounds are distant. FHT Cat 1, toco quiet. SVE 2-3 / 50 / -3 / medium / posterior and no blood or discharge on the glove. Fundus is non-tender. Labs are reassuring including Amylase, Lipase, GTT, LDH, and preE labs. Anemia is still present but she received IV iron, today. We will plan for Protonix, Mylicon, and Mylanta / viscous lido cocktail. If no improvement, consider RUQ US +/- CT scan; if improvement, will hold off on imaging to the morning. Ddx includes, but not limited to: GERD, hiatal hernia, gastric ulcers, gas, cholecystitis Objective Last Vital Signs Temp 98.4 F 01/01/25 21:24 Pulse 89 01/01/25 21:24 Resp 16 01/01/25 21:24 BP 143/80 H 01/01/25 21:24 Pulse Ox 99 01/01/25 21:24 Laboratory Results - last 24 hr 01/01/25 01/01/25 01/01/25 21:16 21:16 21:16 WBC RBC Hgb Hct MCV MCH MCHC RDW Plt Count MPV Immature Gran % Neutrophils % Lymphocytes % Monocytes % Eosinophils % Basophils % Nucleated RBC % Absolute Neutrophils Absolute Lymphocytes Absolute Monocytes Absolute Eosinophils Absolute Basophils Sodium Potassium Chloride Carbon Dioxide Anion Gap BUN Creatinine Est GFR (CKD-EPI 2020) Glucose Calcium Total Bilirubin GGT < 7 Cancelled AST ALT Alkaline Phosphatase Lactate Dehydrogenase 101 Cancelled Total Protein Albumin Amylase Lipase Add-On Test Request DONE ABO/Rh Antibody Screen 01/01/25 01/01/25 21:25 Unknown WBC 10.81 H RBC 3.32 L Hgb 8.8 L Hct 27.3 L MCV 82 MCH 26.5 L MCHC 32.2 RDW 12.6 Plt Count 265 MPV 10.7 Immature Gran % 0.6 Neutrophils % 65.5 Lymphocytes % 26.5 Monocytes % 7.0 Eosinophils % 0.0 Basophils % 0.4 Nucleated RBC % 0.0 Absolute Neutrophils 7.08 H Absolute Lymphocytes 2.86 Absolute Monocytes 0.76 Absolute Eosinophils 0.00 Absolute Basophils 0.04 Sodium 139 Potassium 3.5 Chloride 105 Carbon Dioxide 25.1 Anion Gap 8.9 BUN 5 L Creatinine 0.4 L Est GFR (CKD-EPI 2020) 140.77 Glucose 76 Calcium 8.0 L Total Bilirubin 0.3 GGT AST 11 L ALT 20 Alkaline Phosphatase 109 Lactate Dehydrogenase Total Protein 5.9 L Albumin 2.3 L Amylase 48 Lipase 26 Add-On Test Request Cancelled ABO/Rh O Positive Antibody Screen NEGATIVE Time Spent with Patient Time Spent with Patient: 25-34 minutes Time was spent: preparing to see the patient(eg.review tests), obtaining and/or reviewing separately otained hiistory, ordering medications,tests, procedures, referring, communicating with other health health care administrator, indepentently interpreting results, counseling the patient, care coordination and other
[2025-01-01 23:55] VITALS: BP 104/58; PULSE 70
[2025-01-02] MEDS: Pantoprazole 40 MG VIAL IVP (00:03)
[2025-01-02 00:05] VITALS: BP 106/55; PULSE 72
[2025-01-02] MEDS: Lidocaine 2% Viscous 15 ML CUP PO (00:53)
[2025-01-02] MEDS: Mylanta Suspension 30 ML CUP PO (00:53)
[2025-01-02] MEDS: Lactated Ringers 1,000 ML 125 ML IV (00:54)
--- NOTE | 2025-01-02 06:11 | LC.LAC2 ---
Results Infant Weight/I&O Weight Change: Weight 111.13 kg I&O: 12/31/24 01/01/25 01/01/25 01/02/25 23:59 11:59 23:59 11:59 Intake Total 456.25 / 456.25 Output Total 200 / 200 Balance 256.25 / 256.25 Intake: IV 456.25 / 456.25 Output: Urine 200 / 200 Other: Weight 111.13 kg
--- NOTE | 2025-01-02 07:15 | DI.US_ITS ---
Exam(s) US ABDOMEN LIMITED EXAM: US ABDOMEN LIMITED CLINICAL HISTORY: right upper quadrant pain. 36 weeks gestation TECHNIQUE: Ultrasound abdomen performed using standard protocol. COMPARISON: No exams were available for comparison FINDINGS: PANCREAS: Normal where visualized. LIVER: Normal. Hepatopetal flow in the Portal Vein. The liver measures in 20.6 cm length. No evidence of a hepatic mass. GALLBLADDER: No evidence of cholelithiasis. No evidence of wall thickening. No pericholecystic fluid identified. There are 2 small echogenic nodules that are fixed along the wall of the gallbladder likely reflecting a polyp. The larger measures 3 x 5 mm. The smaller measures 3 x 4 mm. BILIARY SYSTEM: Common bile duct measures < 7 mm. No intrahepatic biliary ductal dilation. KIRK'S SIGN: Negative. RIGHT KIDNEY: Kidney is normal in size. No evidence of renal calculi. There is mild dilatation of the right renal collecting system. Single image of the left kidney shows no evidence of hydronephrosis. No renal mass or cyst identified. ASCITES: None seen. IMPRESSION: Very mild right hydronephrosis. DATA REPOSITORY:
[2025-01-02 07:43] VITALS: BP 123/74; PULSE 68; RESP 18; TEMP 36.6
[2025-01-02 11:52] VITALS: BP 143/80; PULSE 89; TEMP 36.9
--- NOTE | 2025-01-02 11:52 | W.OBNST ---
Date of service: 01/01/25 Time of Service: 22:00 NST Evaluation Reason for NST Reasons for Nonstress Test: OTHER, SEE COMMENT Reason for NST Other: RUQ pain, nausea, dry heaving Gestational Age Gestational Age in Weeks and Days: 36 Weeks and 1Days Test and Monitor Explained Test/Monitor Explained: Test Explained, Monitor Explained and Patient Verbalized Understanding Vital Signs Blood Pressure: 143/80 Pulse: 89 Temperature: 98.4 F NST Information Date on Monitor: 01/01/25 Time on Monitor: 21:08 Date off Monitor: 01/01/25 Time off Monitor: 22:06 Total Time on Monitor: 58 NST Interventions: IV Fluids Contraction Frequency: 0 NST Evaluation Patient States Movement: Present FHR Baseline: 120 Variability: Moderate 6-25 bpm Accelerations: 15x15 Decelerations: None NST Results: Reactive Note Ultrasound Done: N/A. NST Note NST Reviewed and Verified by: Suzan Warren
--- NOTE | 2025-01-09 22:50 | W.PM.DS.N ---
Date of service: 01/03/25 Time of Service: 12:00 DS: Diagnosis Discharge Diagnosis (1) Right upper quadrant abdominal pain affecting : Status: Acute Discharge Plan Disposition Patient Disposition: Home Condition: Good Discharge Details Reason For Visit: right upper quadrant pain Admit Date/Time: 01/01/25 21:12 Admit Provider: Kaia Batista Attending Provider: Kaia Batista Primary Care Provider: Ashkan Palencia Hospital Course Hospital Course: 24-year-old G1, P0 at 36 weeks is dated by LMP equal to 8-week ultrasound presented to labor and delivery for assessment of reported right upper quadrant pain on the evening of 01/01/2025. Earlier in the day the patient stated that the pain had started in the morning as a low-grade pain and steadily increased over the course of the day. Upon presentation to the hospital, she reported a disruptive pain and was noted to be having difficulty finding a comfortable position. Blood pressures were appropriate and preeclampsia labs were within normal limits. Amylase, lipase, LDH, GGT were all appropriate as well. She was treated with Protonix, Mylicon, and a gastric cocktail, shortly after which her symptoms improved. She was monitored over the course of the evening and was found to have a significant reduction in her pain by the morning. Ultrasound the following morning of the gallbladder found no evidence of gallbladder pathology. She was discharged with instructions for close follow-up and omeprazole; gastric friendly diet encouraged. Home Meds and New Rx's Prescriptions: New simethicone 80 mg tablet,chewable 80 mg PO BID PRN10 Days Qty: 30 0RF Lactobacillus acidophilus 500 million cell Capsule 500 mmu cells PO BID 30 Days Qty: 60 0RF omeprazole 20 mg capsule,delayed release(DR/EC) 20 mg PO DAILY 84 Days Qty: 84 0RF No Action sertraline 100 mg tablet 100 mg PO DAILY Qty: 90 4RF aspirin 81 mg tablet,delayed release (DR/EC) 162 mg PO DAILY Qty: 60 7RF cyanocobalamin (vitamin B-12) 500 mcg tablet 500 mcg PO DAILY 30 Days Qty: 30 6RF ferrous sulfate [Feosol] 325 mg (65 mg iron) tablet 325 mg PO DAILY Qty: 60 3RF cholecalciferol (vitamin D3) 50 mcg (2,000 unit) capsule 50 mcg PO DAILY Qty: 60 0RF One-A-Day -1 27 mg iron- 800 mcg-235 mg capsule PO ondansetron 4 mg tablet,disintegrating 4 mg PO Q8H PRN (Reason: nausea and vomiting) Qty: 2 0RF Discharge Instructions Additional Instructions: Be careful with heavy grease and/or spicy foods as well as minimize intake of chocolate, coffee, and mint; avoid alcohol. Favor lean meats and proteins as well as high-fiber foods such as leafy greens. Referrals: Danay Hugo DO [OSTEOPATHIC DOCTOR, Obstetrics] Activity:: Activity as Tolerated Equipment/Supplies:: No Equipment Needed Diet:: Other Discharge Orders Discharge Orders: Discharge Order (Routine); Ordered 01/02/25 Ordered By: Danay Hugo Discharge Data Discharge Date/Time-TO BE ENTERED AT DEPARTURE: 01/02/25 10:14 DS: Summary Time Spent with Patient providing and/or coordinating discharge services: Greater than 30 minutes Status at Discharge Functional status at discharge: independent ambulation Overall status at discharge: patient is back to baseline Mental Status: mental status grossly normal Speech and Movement: speech and movement normal Mood: congruent mood Affect: normal affect Exam Const General: cooperative Orientation: alert and awake HENMT Head: normal to inspection Resp Effort & Inspection: normal respiratory effort GI Inspection: normal to inspection Skin General skin exam: no rashes or lesions noted Extrem General: normal to inspection Psych Mental Status: mental status grossly normal Speech and Movement: speech and movement normal Mood: congruent mood Affect: normal affect DS: Data Vitals/I&O Vitals and I&O: Vital Signs Temperature 97.8 F 01/02/25 07:43 Temperature 98.4 F 01/02/25 11:52 Temperature Source Oral 01/02/25 07:43 Pulse 68 01/02/25 07:43 Pulse 89 01/02/25 11:52 Pulse Rhythm Regular 01/02/25 07:45 Respiratory Rate 18 01/02/25 07:43 Blood Pressure 123/74 01/02/25 07:43 Blood Pressure 143/80 01/02/25 11:52 Blood Pressure Mean 101 01/01/25 21:05 Pulse Oximetry 99 01/01/25 21:24 Oxygen Delivery Method Room Air 01/01/25 21:24 Oxygen Flow Rate 0 01/01/25 21:24 Pain Level 2 01/02/25 00:53 PFSH All Active Problems (Updated 01/03/25 @ 00:03 by CARLOS MCKEON) Right upper quadrant abdominal pain affecting (Acute) Anemia affecting first (Acute) H/O gastric bypass (Acute) Rouen-Y in 2022 Rubella non-immune status, antepartum (Acute) High BMI (Acute) 32 (Acute) Medical History (Updated 01/03/25 @ 00:03 by CARLOS MCKEON) Infertility History of hysterosalpingogram 11/2022. Patent L fallopian tube, ? R fallopian tube patent. 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 Sexually active: Yes Do you think of yourself as: straight/heterosexual Current gender identity: female Do you feel safe in your relationship?: Yes Female Reproductive History Menstrual Age of Menarche: 12 Duration of menses: 3-5 days control method: none History History 1 Para 0 Hx # Term Pregnancies 0 Multiple births 0 Hx # Pregnancies 0 Ectopic pregnancies 0 AB induced 0 Hx Number of Living Children 0 AB spontaneous 0 Time Spent with Patient Time Spent with Patient: <45 minutes Time was spent: preparing to see the patient(eg.review tests), obtaining and/or reviewing separately otained hiistory, ordering medications,tests, procedures, referring, communicating with other health healthcare administrator, indepentently interpreting results, counseling the patient and care coordination
== END 2025-01-02 10:14 | disposition home or self-care (01) ==
LOC: OBS 21:18
PROVIDERS: Admitting Provider Advanced Practice Midwife; PCP Family Medicine; Visit Provider Advanced Practice Midwife
DX: O36.8130 Decreased fetal movements, third trimester, not applicable or unspecified (principal); O99.613 Diseases of the digestive system complicating pregnancy, third trimester; O99.343 Other mental disorders complicating pregnancy, third trimester; F32.A Depression, unspecified; Z3A.36 36 weeks gestation of pregnancy; O99.843 Bariatric surgery status complicating pregnancy, third trimester; O99.013 Anemia complicating pregnancy, third trimester; D64.9 Anemia, unspecified; O99.353 Diseases of the nervous system complicating pregnancy, third trimester; G43.909 Migraine, unspecified, not intractable, without status migrainosus; Z28.39 Other underimmunization status; R10.11 Right upper quadrant pain
CPT/HCPCS: 80053; 83690; 86850; 86900; 86901; 96361; 96374; 96375; 59025; 76705; 82150; 82977; 83615; 85025; G0378; J2405; J2470; J3490

== ENCOUNTER 2025-01-08 13:22 | Outpatient (CLI) | payer MEDICAID, SELFPAY ==
[2025-01-08 13:37] VITALS: BP 107/59; PULSE 72; TEMP 36.7
[2025-01-08 13:38] VITALS: BP 107/59; PULSE 72
[2025-01-08] MEDS: IRON SUCROSE COMPLEX 200 MG in Normal Saline 100 ML 400 MG IVPB (13:54)
[2025-01-08 19:10] VITALS: BP 107/59; PULSE 72; TEMP 36.7
--- NOTE | 2025-01-08 19:10 | W.OBNST ---
Date of service: 01/08/25 Time of Service: 15:00 NST Evaluation Reason for NST Reasons for Nonstress Test: OTHER, SEE COMMENT Reason for NST Other: iron infusion Gestational Age Gestational Age in Weeks and Days: 37 Weeks and 1Days Test and Monitor Explained Test/Monitor Explained: Test Explained, Monitor Explained and Patient Verbalized Understanding Vital Signs Blood Pressure: 107/59 Pulse: 72 Temperature: 98.1 F NST Information Date on Monitor: 01/08/25 Time on Monitor: 13:30 Date off Monitor: 01/08/25 Time off Monitor: 14:12 Total Time on Monitor: 42 NST Interventions: PO Hydration Contraction Frequency: 0 NST Evaluation Patient States Movement: Present FHR Baseline: 125 Variability: Moderate 6-25 bpm Accelerations: 15x15 Decelerations: None NST Results: Reactive Note Ultrasound Done: N/A. NST Note NST Reviewed and Verified by: Suzan Warren
== END 2025-01-08 14:35 ==
LOC: BCD 13:34 → OBS 13:36
PROVIDERS: PCP Family Medicine; Visit Provider Advanced Practice Midwife
DX: Z3A.37 37 weeks gestation of pregnancy (principal); O99.013 Anemia complicating pregnancy, third trimester
CPT/HCPCS: 96365; 59025; J1756

== ENCOUNTER 2025-01-10 03:47 | Inpatient (IN) | payer MEDICAID, SELFPAY ==
[2025-01-10] VITALS (19 sets, daily range): BP systolic 100–137; BP diastolic 51–89; PULSE 0–90; RESP 16–17; TEMP 36.3–36.9; O2SAT 97–99
[2025-01-10 04:09] LABS: HCT 31.9 % (36.0-46.0); HGB 10.2 g/dL (11.2-15.7); MCH 26.4 pg (27.0-33.0); MCV 83 fL (80-95); MPV 10.7 fL (8.0-11.0); Platelet Count 286 10^3/uL (130-400); RBC 3.86 10^6/uL (3.93-5.22); RDW 13.4 % (11.7-14.6); RDW-SD 39.3 fL; WBC 10.42 10^3/uL (4.4-10.8)
[2025-01-10] MEDS: Lactated Ringers 500 ML IV ×2 (05:04→10:15)
[2025-01-10] MEDS: Normal Saline Flush 10 ML SYR IVP ×2 (05:05→08:35)
--- NOTE | 2025-01-10 09:13 | W.PM.OBHPL1 ---
Date of service: 01/10/25 Time of Service: 03:30 Assessment and Plan Assessment and plan (1) Spontaneous onset of labor: Status: Acute Assessment and plan: Admit to Center and routine admission labs. Comfort measures. Anticipate . OB-HPI Labor/Delivery History of Present Illness Reason for Visit: Rule out Labor Chief Complaint: Uterine Contractions; Other (bloody show). RITESH Calculator Estimated Delivery Date Method Current WG Current Estimate 01/28/25 LMP (Certain) 37w 3d Other Estimates 01/29/25 Ultrasound #1 37w 2d Comments: Elise came in an reports uterine contractions at home which are painful. She also has experienced bloody show. History of Present Expected Delivery Route/Plan - CNM FOB - Reid Wagoner (1 son, healthy) BB yes to circ Rubella non-immune, offer vaccine (pt plans to accept) Planning for epidural GBS negative Specific Issues/Plan 1. BMI 32- early GTT=67, [id number] 2. cfDNA- low risk, CF- neg, SMA neg, AFP low risk 3. History of depression- sertraline 75 mg PO daily 4. History gastric bypass - early GTT -67 and CMP WNL 4a. Had vitamin levels @ [facility], repeated at [facility] 11/07 Vit D-141, B12 and Folate WNL 4b. unable to tolerate glucola @ 28 wks. Per UTD, Glucola not recommended d/t dumping syndrome. Plan 1wk QID fingersticks, Diabetes ED ordered. 4C. Labs 11/07-CMP-WNL, random glucose-151, iron 10.8, low b12, folate and Vit D 141, HbA1C 5.1 4d. recommended stopping Vit D supplement 4e. Growth Ultrasounds: 32-wk EFW: 54th%, RAIMUNDO=13. 4f. Declined nutrition counseling, Elevated fasting glucose readings on home testing. Elise does not wish to continue daily glucose testing, Met with Alex in dietary, food logs provided and CGM ordered 4g. Per MD consult 12/05- [place] [facility] [place] at 32 weeks. RAIMUNDO WNL and EFW 53%ile, 4h. Scan at 36 wks for EFW in 59th percentile, RAIMUNDO 21, cephalic presentation 5. Increased preeclampsia risk - ASA recommended daily 6. Anemia - Hgb 10.8- daily iron recommended by Karissa Damian 6a. At 36 wks hgb is 8.6, to for iron infusion Assessment: History Reviewed & Current PFSH All Active Problems (Updated 01/10/25 @ 09:15 by Kaia Batista CNM) Spontaneous onset of labor (Acute) Right upper quadrant abdominal pain affecting (Acute) Anemia affecting first (Acute) H/O gastric bypass (Acute) [facility]-[facility] in 2022 Rubella non-immune status, antepartum (Acute) High BMI (Acute) 32 (Acute) Medical History (Updated 01/10/25 @ 09:15 by Kaia Batista CNM) Infertility History of hysterosalpingogram 11/2022. Patent L fallopian tube, ? R fallopian tube patent. Migraine Depression Surgical History (Updated 01/03/25 @ 00:03 by CARLOS MCKEON) Hx of tonsillectomy H/O gastric bypass H/O oophorectomy Family History (Updated 07/17/24 @ 09:33 by Kaia Batista CNM) Sister Hip dysplasia Other Diabetes Heart disease Hyperlipidemia Hypertension Social History (Updated 04/17/22 @ 15:22 by Erin Díaz MD) Smoking/Tobacco Use Status: Former Tobacco Use Quit Date: 01/16/22 Quit status: has quit before Smoking risk assessment performed?: Yes Alcohol Intake: never Drug use: Never Household members: significant other Housing: house current occupation: [employer] Sexually active: Yes Do you think of yourself as: straight/heterosexual Current gender identity: female Do you feel safe at home: Yes Do you feel safe in your relationship?: Yes Female Reproductive History Menstrual Age of Menarche: 12 Duration of menses: 3-5 days control method: none History History 1 Para 0 Hx # Term Pregnancies 0 Multiple births 0 Hx # Pregnancies 0 Ectopic pregnancies 0 AB induced 0 Hx Number of Living Children 0 AB spontaneous 0 Meds Allergies and Home Medications Allergies Allergy/AdvReac Type Severity Reaction Status Date / Time laundry detergent AdvReac Mild rash Uncoded 01/08/25 12:59 Home Medications ?Medication ?Instructions ?Recorded ?Confirmed ?Type vit 168-iron 27 mg-folic 1 cap PO DAILY 05/25/24 01/10/25 History acid 800 mcg-omega3 235 mg capsule (One-A-Day -1) aspirin 81 mg tablet,delayed 162 mg (2 x 81 mg) PO DAILY #60 10/16/24 01/10/25 Rx release tabs sertraline 100 mg tablet 100 mg PO DAILY #90 tabs 10/16/24 01/10/25 Rx ondansetron 4 mg disintegrating 4 mg PO Q8H PRN nausea and 11/20/24 01/10/25 Rx tablet vomiting #2 tabs cholecalciferol (vitamin D3) 50 50 mcg PO DAILY #60 caps 12/14/24 01/10/25 Rx mcg (2,000 unit) capsule cyanocobalamin (vitamin B-12) 500 500 mcg PO DAILY 30 days #30 tabs 12/14/24 01/10/25 Rx mcg tablet ferrous sulfate 325 mg (65 mg 325 mg PO DAILY #60 tabs 12/14/24 01/10/25 Rx iron) tablet (Feosol) Lactobacillus acidophilus 500 500 mmu cells PO BID antibiotic 01/02/25 01/10/25 Rx million cell capsule use 30 days #60 caps omeprazole 20 mg capsule,delayed 20 mg PO DAILY 12 weeks #84 caps 01/02/25 01/10/25 Rx release simethicone 80 mg chewable tablet 80 mg PO BID PRN 10 days #30 tabs 01/02/25 01/10/25 Rx Exam Physical Exam Vital signs: Temp Pulse Resp BP Pulse Ox 97.5 F L 90 16 114/63 97 01/10/25 07:26 01/10/25 07:29 01/10/25 07:26 01/10/25 07:26 01/10/25 07:26 Vital Signs Reviewed: Yes Constitutional Constitutional: no acute distress Detailed Labor and Delivery Exam Dilation: 3 Effacement (%): 50 station: -3 Cervix position: posterior Consistency: soft Shine Score: Cervical Points Exam 0 1 2 3 Dilation Closed 1-2cm 3-4 cm 5-6cm Effacement 0-30% 40-50% 60-70% 80% Consistency Firm Medium Soft Station -3 -2 -1,0 +1,+2 Position Posterior Mid Anterior Amniotic Membrane Status: Intact Monitor Mode: External Contraction Frequency(min): every 6 minutes Contraction Duration(sec): 60 Contraction Intensity: Mild/Moderate Fetus A Heart Rate Baseline: 130 Monitor Accelerations: 15 X 15 Monitor Decelerations: None Variability: Moderate (6-25 BPM) Presentation: Cephalic Categories: Category I HEENT Exam HEENT Exam: Normal Respiratory Exam Respiratory Exam: Normal Cardiovascular Exam Cardiovascular Exam: Normal Abdominal Exam Abdominal Exam: Normal Extremities Exam Extremities Exam: Normal Skin Exam Skin Exam: Normal Psychiatric Exam Psychiatric Exam: Normal Results Results Group Beta Strep: Negative Blood Type: O+ Rubella Status: Nonimmune Abnormal Lab Findings: Abnormal Labs 01/10/25 04:00 RBC 3.86 L Hgb 10.2 L Hct 31.9 L MCH 26.4 L Risk Assessment Risk for Shoulder Dystocia Historical/Initial OB: POSITIVE FOR: Pre- BMI>30; NEGATIVE FOR: Pelvic Abnormality, Previous Shoulder Dystocia or Previous Macrosomia 36 Weeks: NEGATIVE FOR: Current Gestational DM, EFW>4500gms or Maternal Weight Gain>40lbs 40 Weeks: NEGATIVE FOR: EFW> 4500 gms, Maternal Weight Gain >40lb or Post Dates Increased Risk?: Yes Risk for Pre-Eclampsia Daily Dose ASA Indicated: Yes Yes, if one or more: NEGATIVE FOR: Hx Pre-E/Gest HTN, Chronic HTN, Multiple Gestation, Pre-gestational DM, Renal Disease, Systemic Lupus or APA Syndrome Yes, if 2 or more: POSITIVE FOR: Nulliparity, BMI>30 and Mother/Sister w/ Pre-E; NEGATIVE FOR: Age>= 35 yrs, >10yr btwn pregnancies, ethinicty or Previous IUGR Risk for Post- Hemorrhage Initial: NEGATIVE FOR: Multiple Gestation, Previous PPH, Known Clotting Deficiency, Grand Multiparity or Anticoagulation 36 Weeks: NEGATIVE FOR: Anemia, hgb<10, Low platelets(thrombocytopenia), Gestational HTN or Pre-E, Polyhydraminios or EFW>4500gms 40 Weeks: NEGATIVE FOR: Anemia, hgb<10, Low platelets (thrombocytopenia), Gestation HTN or Pre-E, Polyhydraminios or EFW>4500gms At Risk?: No Risks Reviewed Risks Reviewed Upon Admission: Yes
--- NOTE | 2025-01-10 09:24 | W.PM.OBNL1 ---
Date of service: 01/10/25 Time of Service: 09:24 Pelvic Exam Dilation: 3 Effacement (%): 75 station: -2 Cervix Position: mid Consistency: soft Vaginal Exam Presentation: Cephalic Contractions Monitor Mode: External Contraction Frequency(min): irritability Contraction Duration(sec): 40 Intensity: Mild/Moderate Fetus A Monitor: External (US) Heart Rate Baseline: 130 Presentation: Cephalic Variability: Moderate (6-25 BPM) Categories: Category I FHR Rhythm: Regular Accelerations: 15 X 15 Decelerations: None Amniotic Membrane Status: Intact Assessment and Plan Assessment and plan (1) Spontaneous onset of labor: Status: Acute Assessment and plan: Discussed prodromal labor with Elise and her mother. I reviewed options of returning home to await active labor or therapeutic rest. Elise is tired and wishes to have therapeutic rest at this time. Will provide morphine IM and vistaril PO. She has not been taking adequate PO fluid so I reommended an IV bolus at this time of 500 cc. LR and rest was encouraged. Anticipate and will re-evaluate when she awakes. Objective Abnormal lab results 01/10/25 Range/Units 04:00 RBC 3.86 L (3.93-5.22) 10^6/uL Hgb 10.2 L (11.2-15.7) g/dL Hct 31.9 L (36.0-46.0) % MCH 26.4 L (27.0-33.0) pg Temp Pulse Resp BP Pulse Ox 97.5 F L 90 16 114/63 97 01/10/25 07:26 01/10/25 07:29 01/10/25 07:26 01/10/25 07:26 01/10/25 07:26 Laboratory Results WBC 10.42 10^3/uL (4.4-10.8) 01/10/25 04:00 RBC 3.86 10^6/uL (3.93-5.22) L 01/10/25 04:00 Hgb 10.2 g/dL (11.2-15.7) L 01/10/25 04:00 Hct 31.9 % (36.0-46.0) L 01/10/25 04:00 MCV 83 fL (80-95) 01/10/25 04:00 MCH 26.4 pg (27.0-33.0) L 01/10/25 04:00 MCHC 32.0 % (32.0-36.0) 01/10/25 04:00 RDW 13.4 % (11.7-14.6) 01/10/25 04:00 Plt Count 286 10^3/uL (130-400) 01/10/25 04:00 MPV 10.7 fL (8.0-11.0) 01/10/25 04:00 ABO/Rh O Positive 01/10/25 04:00 Antibody Screen NEGATIVE 01/10/25 04:00 Vital Signs Reviewed: Yes Subjective Patient Reports: No new Complaints Interval history since last seen: Elise is experiencing irregular contractions which are mild to palpate. She has been awake all night and is very fatigued. Results Hemoglobin/Hematocrit: Hgb 10.2 g/dL (11.2-15.7) L 01/10/25 04:00 Hct 31.9 % (36.0-46.0) L 01/10/25 04:00 Abnormal Lab Findings: Abnormal Labs 01/10/25 04:00 RBC 3.86 L Hgb 10.2 L Hct 31.9 L MCH 26.4 L
--- NOTE | 2025-01-10 09:49 | W.OBNST ---
Date of service: 01/10/25 Time of Service: 04:00 NST Evaluation Reason for NST Reasons for Nonstress Test: OTHER, SEE COMMENT Reason for NST Other: rule out labor Gestational Age Gestational Age in Weeks and Days: 37 Weeks and 3Days Test and Monitor Explained Test/Monitor Explained: Test Explained, Monitor Explained and Patient Verbalized Understanding Vital Signs Blood Pressure: 122/75 Pulse: 70 Temperature: 98.4 F Urine Results Urine Protein: Negative Urine Ketones: Negative Urine Glucose: Negative Urine Blood: Positive NST Information Date on Monitor: 01/10/25 Time on Monitor: 02:54 Date off Monitor: 01/10/25 Time off Monitor: 03:29 Total Time on Monitor: 35 NST Interventions: PO Hydration Contraction Frequency: 6 NST Evaluation Patient States Movement: Present FHR Baseline: 115 Variability: Moderate 6-25 bpm Accelerations: 15x15 Decelerations: None NST Results: Reactive Note Ultrasound Done: N/A. NST Note Note: Elise reports contractions which are painful at home. reactive NST. Admitted in early labor. NST Reviewed and Verified by: Kaia Batista
[2025-01-10] MEDS: Lactated Ringers 1,000 ML 125 ML IV (10:54)
[2025-01-10] MEDS: hydrOXYzine PAMOATE 25 MG CAP 50 MG PO (10:55)
[2025-01-10] MEDS: MORPHine 10 MG/ML VIAL IM (11:15)
--- NOTE | 2025-01-10 22:10 | W.PM.OBNL1 ---
Date of service: 01/10/25 Time of Service: 18:00 Pelvic Exam Dilation: 4 Effacement (%): 90 station: -1 Cervix Position: mid Consistency: soft Vaginal Exam Presentation: Cephalic Comments: bulging nag of water palpated Contractions Monitor Mode: External Contraction Frequency(min): irregular, difficult to monitor due to habitus Contraction Duration(sec): 50 Intensity: Moderate Fetus A Monitor: External (US) Heart Rate Baseline: 130 Presentation: Cephalic Variability: Moderate (6-25 BPM) Categories: Category I FHR Rhythm: Regular Accelerations: 15 X 15 Decelerations: None Amniotic Membrane Status: Intact Assessment and Plan Assessment and plan (1) Prolonged latent phase of labor: Status: Acute Assessment and plan: i discussed the option of returning home to await stronger contractions. Elise stated that she would feel more comfortable staying at the hospital. Due to evidence of cervical change and distance that Elise lives from the hospital, she was given the option of continued observation at the center. Elise strongly desites to stay at the hospital. Will continue to observe for sigs of active labor after ambulation. Dr. Geronimo was notified of this plan. Objective Abnormal lab results 01/10/25 Range/Units 04:00 RBC 3.86 L (3.93-5.22) 10^6/uL Hgb 10.2 L (11.2-15.7) g/dL Hct 31.9 L (36.0-46.0) % MCH 26.4 L (27.0-33.0) pg Temp Pulse Resp BP Pulse Ox 97.9 F 73 16 100/51 L 99 01/10/25 18:12 01/10/25 20:00 01/10/25 18:12 01/10/25 20:00 01/10/25 16:16 Laboratory Results WBC 10.42 10^3/uL (4.4-10.8) 01/10/25 04:00 RBC 3.86 10^6/uL (3.93-5.22) L 01/10/25 04:00 Hgb 10.2 g/dL (11.2-15.7) L 01/10/25 04:00 Hct 31.9 % (36.0-46.0) L 01/10/25 04:00 MCV 83 fL (80-95) 01/10/25 04:00 MCH 26.4 pg (27.0-33.0) L 01/10/25 04:00 MCHC 32.0 % (32.0-36.0) 01/10/25 04:00 RDW 13.4 % (11.7-14.6) 01/10/25 04:00 Plt Count 286 10^3/uL (130-400) 01/10/25 04:00 MPV 10.7 fL (8.0-11.0) 01/10/25 04:00 ABO/Rh O Positive 01/10/25 04:00 Antibody Screen NEGATIVE 01/10/25 04:00 Vital Signs Reviewed: Yes Subjective Patient Reports: No new Complaints Interval history since last seen: Elise slept well after receiving morphine IM and vistaril PO. She awoke and used the shower for comfort. Reactive NST obtained. Elise reports occasional contractions which feel stronger than previously. Results Hemoglobin/Hematocrit: Hgb 10.2 g/dL (11.2-15.7) L 01/10/25 04:00 Hct 31.9 % (36.0-46.0) L 01/10/25 04:00 Abnormal Lab Findings: Abnormal Labs 01/10/25 04:00 RBC 3.86 L Hgb 10.2 L Hct 31.9 L MCH 26.4 L
[2025-01-11] VITALS (66 sets, daily range): BP systolic 63–156; BP diastolic 29–88; PULSE 62–107; RESP 16–20; TEMP 36.5–37; O2SAT 93–100; BMI 37.8
[2025-01-11] MEDS: Normal Saline Flush 10 ML SYR IVP ×2 (02:04→07:32)
--- NOTE | 2025-01-11 05:25 | ANES.PREOP_ITS ---
General Info Date of Service Date Performed: 01/11/25 Height: 5 ft 8 in Weight: 112.945 kg Body Mass Index (BMI): 37.8 Meds Allergies and Home Medications Allergies Allergy/AdvReac Type Severity Reaction Status Date / Time laundry detergent AdvReac Mild rash Uncoded 01/08/25 12:59 Home Medication ?Medication ?Instructions ?Recorded vit 168-iron 27 mg-folic 1 cap PO DAILY 05/25 acid 800 mcg-omega3 235 mg capsule (One-A-Day -1) aspirin 81 mg tablet,delayed 162 mg (2 x 81 mg) PO IRWIN LY #60 10/16/24 release tabs sertraline 100 mg tablet 100 mg PO DAILY #90 tabs ondansetron 4 mg disintegrating 4 mg PO Q8H PRN nausea and 11/20/24 tablet vomiting #2 tabs cholecalciferol (vitamin D3) 50 50 mcg PO DAILY #60 ca ps 12/14/24 mcg (2,000 unit) capsule cyanocobalamin (vitamin B-12) 500 500 mcg PO DAILY 30 days #30 tabs 12/14/24 mcg tablet ferrous sulfate 325 mg (65 mg 325 mg PO DAILY #60 tabs 12/14/24 iron) tablet (Feosol) Lactobacillus acidophilus 500 500 mmu cells PO BID ant ibiotic 01/02/25 million cell capsule use 30 days #60 caps omeprazole 20 mg capsule,delayed 20 mg PO DAILY 12 we ks #84 caps 01/02/25 release simethicone 80 mg chewable tablet 80 mg PO BID PRN 10 days #30 tabs 01/02/25 Current Visit Medications: Current Medications Generic Name Dose Route Start Last Admin Trade Name Johnsonq PRN Reason Stop Dose Admin Fentanyl 25 mcg 01/11/25 05:22 Fentanyl 100 Mcg/2 Ml Vial IVP 01/11/25 05:23 NOW ONE Fentanyl/Ropivacaine 200 ml 01/11/25 04:30 Fentanyl/Ropivacaine 2 Mcg/Ml And 0.1% 200 Ml Cadd Cassette EP DIRECTED [facility] Ringer's Solution 1,000 mls @ 125 mls/hr 01/10/25 11:00 01/10/25 10:54 IV 125 mls/hr INFUSION LEANNA Administration IV Miscellaneous Supplies 1 each 01/10/25 04:00 Iv Access IV DIRECTED LEANNA Sertraline HCl 100 mg 01/11/25 08:30 Sertraline 100 Mg Tab PO DAILY LEANNA Sodium Chloride 0 ml 01/10/25 03:46 01/10/25 05:05 Normal Saline Flush 10 Ml Syr IVP 10 ml PRN PRN Administration Sodium Chloride 0 ml 01/10/25 08:30 01/11/25 02:04 Normal Saline Flush 10 Ml Syr IVP 10 ml BID LEANNA Administration Sodium Chloride 0 ml 01/10/25 03:46 Normal Saline 10 Ml Vial IJ DIRECTED PRN PFSH Active Problems Active Problems: Problem Status Onset Code Prolonged latent phase of labor Acute O63.0 Anemia affecting first Acute O99.019 H/O gastric bypass Acute Z98.84 Rubella non-immune status, antepartum Acute O09.899, Z28.39 High BMI Acute Acute Z34.90 Medical History Medical History (Updated 01/11/25 @ 06:08 by Kaia Batista CNM) Infertility History of hysterosalpingogram 11/2022. Patent L fallopian tube, ? R fallopian tube patent. Migraine Depression Surgical History Surgical History (Updated 01/03/25 @ 00:03 by CARLOS MCKEON) Hx of tonsillectomy H/O gastric bypass H/O oophorectomy Tobacco Smoking/Tobacco Use Status: Former Tobacco Use Passive smoking exposure: Yes Alcohol Alcohol Intake: never Substance Use Substance use: Never Prental History History 2 1 Para 0 Hx # Term Pregnancies 0 Multiple births 0 Hx # Pregnancies 0 Ectopic pregnancies 0 AB induced 0 Hx Number of Living Children 0 AB spontaneous 0 Vital Signs and Lab Results Vital Signs Most Recent Vital Signs in EMR: Most Recent Vital Signs Temp Pulse Resp BP Pulse Ox 36.7 C 84 16 117/88 99 01/11/25 02:13 01/11/25 04:17 01/11/25 02:13 01/11/25 04:17 01/10/25 16:16 Lab Results 01/10/25 04:00 Blood Type / Crossmatch: 2 Antibody Screen NEGATIVE 01/10/25 Complete Blood Count: 2 WBC, (4.4-10.8) 10.42 10^3/uL 01/10/25, 04:00 RBC, (3.93-5.22) 3.86 10^6/uL L 01/10/25, 04:00 Hgb, (11.2-15.7) 10.2 g/dL L 01/10/25, 04:00 Hct, (36.0-46.0) 31.9 % L 01/10/25, 04:00 Plt Count, (130-400) 286 10^3/uL 01/10/25, 04:00 Complete Metabolic Panel: 2 Sodium, (136-145) 139 mmol/L 01/01/25, 21:25 Potassium, (3.5-5.1) 3.5 mmol/L 01/01/25, 21:25 Chloride, (98-107) 105 mmol/L 01/01/25, 21:25 Carbon Dioxide, (21.0-32.0) 25.1 mmol/L 01/01/25, : BUN, (7-18) 5 mg/dL L 01/01/25, : Creatinine, (0.55-1.02) 0.4 mg/dL L 01/01/25, : Est GFR (CKD-EPI 2020), (mL/min/1.73m2) 140.77 01/01/25, : Calcium, (8.5-10.1) 8.0 mg/dL L 01/01/25, :25 Albumin, (3.4-5.0) 2.3 g/dL L 01/01/25, : Glucose, (74-106) 76 mg/dL 01/01/25, :25 Liver Function Panel: 2 ALT, (14-59) 20 U/L 01/01/25, 21: AST, (15-37) 11 U/L L 01/01/25, :25 GGT, (5-55) < 7 U/L 01/01/25, :16 Pancreas Panel: 2 Amylase, (25-115) 48 U/L 01/01/25, 21:25 Lipase, (<78) 26 U/L 01/01/25, :25 Anesthesia Assessment and Plan Anesthesia History Personal History: No History of Anesthesia Complications Family History: No Family History of Anesthesia Complications Exercise Tolerance Exercise Tolerance: Metabolic Equivalents>4 Pertinent Negatives Pertinent Negatives: No Major Cardiovascular Symptoms or Complaints, No Major Pulmonary Symptoms or Complaints and No History of CVA/TIA Cardiac & Pulmonary Exam Cardiac Exam: Normal S1/S2 Heart Sounds Pulmonary Exam: Clear Bilateral Breath Sounds Implantable Cardiac Device Does patient have a Pacemaker or an ICD?: No Airway Exam Known Difficult Airway: No Mallampati Class: 2 Mouth Opening: Normal (> 3cm) Thyromental Distance: Greater than 3 cm Neck Range of Motion: Full ROM Neck Circumference: Thick Teeth Condition: Normal Dentition ASA Classification ASA Score: ASA 2 Emergency Case?: No NPO Status NPO Status: Full Stomach Status Status: Confirmed Anesthesia Plan Resuscitation Status: Full Code Anesthesia Technique: Labor Epidural Airway Planned: Natural Airway Monitors Used: Standard Monitors
[2025-01-11] MEDS: fentaNYL 100 MCG/2 ML VIAL 25 MCG IVP (05:43)
--- NOTE | 2025-01-11 06:05 | W.PM.OBNL1 ---
Date of service: 01/11/25 Time of Service: 06:09 Informed Consent Informed Consent: Regional Anesthesia Pelvic Exam Dilation: 5 Effacement (%): 100 station: -1 Cervix Position: posterior Consistency: soft Vaginal Exam Presentation: Cephalic Pooling: Positive Contractions Monitor Mode: External Contraction Frequency(min): every 3 min Contraction Duration(sec): 60 Intensity: Moderate Fetus A Monitor: Doppler Heart Rate Baseline: 120 Decelerations: None Assessment and Plan Assessment and plan (1) Spontaneous onset of labor: Status: Acute Assessment and plan: Will prepare for epidural., Comfort measures. fentanyl 25 mcg for pain relief with good effect. Anticipate . Objective Temp Pulse Resp BP Pulse Ox 98.1 F 77 16 109/76 100 01/11/25 02:13 01/11/25 06:04 01/11/25 02:13 01/11/25 06:04 01/11/25 06:04 Laboratory Results WBC 10.42 10^3/uL (4.4-10.8) 01/10/25 04:00 RBC 3.86 10^6/uL (3.93-5.22) L 01/10/25 04:00 Hgb 10.2 g/dL (11.2-15.7) L 01/10/25 04:00 Hct 31.9 % (36.0-46.0) L 01/10/25 04:00 MCV 83 fL (80-95) 01/10/25 04:00 MCH 26.4 pg (27.0-33.0) L 01/10/25 04:00 MCHC 32.0 % (32.0-36.0) 01/10/25 04:00 RDW 13.4 % (11.7-14.6) 01/10/25 04:00 Plt Count 286 10^3/uL (130-400) 01/10/25 04:00 MPV 10.7 fL (8.0-11.0) 01/10/25 04:00 ABO/Rh O Positive 01/10/25 04:00 Antibody Screen NEGATIVE 01/10/25 04:00 Subjective Patient Reports: No new Complaints Interval history since last seen: SROM for a large amount of clear fluid at 0400. Contractions became strong and she requested an epidural. Results Hemoglobin/Hematocrit: Hgb 10.2 g/dL (11.2-15.7) L 01/10/25 04:00 Hct 31.9 % (36.0-46.0) L 01/10/25 04:00 Abnormal Lab Findings: Abnormal Labs 01/10/25 04:00 RBC 3.86 L Hgb 10.2 L Hct 31.9 L MCH 26.4 L
[2025-01-11] MEDS: Lactated Ringers 1,000 ML 999 ML IV (06:35)
[2025-01-11] MEDS: FentaNYL/ROPIvacaine 2 mcg/ml and 0.1% 200 ML CADD Cassette EP (06:37)
--- NOTE | 2025-01-11 06:58 | ANES.NEUR_ITS ---
Epidural/Spinal Catheter Date Performed: 01/11/25 Procedure Start: 06:05 Procedure Stop: 06:50 Requesting Provider: Kaia Batista Procedure Location: Obstetrics Reason Performed: Labor Epidural Standard Monitors Applied: Blood Pressure, SpO2 and See EMR for corresponding vital signs Patient Position: Sitting Sedation Given (Indicate Dose Given): No Sedation given Patient Mental Status: Awake Sterility: Hand Hygiene, Surgical Cap, Surgical Mask, Sterile Gloves, Sterile Drape/Sheet and Chlorhexidine Procedure Location: L2-L3 Interspace Epidural Needle: Tuohy 18 Gauge Needle Length: 3.5 Inch Needle Approach: Midline Epidural Procedure: Skin Prepped, Sterile Drape Placed, 1% Lidocaine to skin and subcutaneous tissue with 25G needle, Tuohy Needle placed, ROBERTA to Saline Used, Epidural Catheter Placed, Negative Heme, Negative CSF Flow and Tuohy Needle Removed Catheter Placed?: Catheter Placed Test Dose (Indicate Dose Given): 3ml 1.5% Lidocaine with 1:200K Epinephrine Given and Negative Test Dose Loss of Resistance Depth (cm): 7 Catheter depth at skin (cm): 12 Dressing: Sorbaview Dressing Placed, Mastisol Used and Dressing reinforced with Tape Epidural Pr ovider Bolus (Indicate Dose Given): Total bolus dose given in 3-5 ml divided doses and Total Ropivacaine 0.1% with Fentanyl 2mcg/ml Given from pump. (ml) Dose:: 5ml x2 Additives (Indicate Dose Given ): None Infusion Medication: Medication Infusion Began Medication Infusion: Ropivacaine 0.1% with Fentanyl 2mcg/ml Maintenance Infusion Rate (ml/hour): 10 PCEA Bolus Dose (ml): 5 Post Procedure Pain score (0-10): 0 Block Level: N/A Paresthesia: None Ultrasound: Used to tori site Number of Attempts (See previous attempts in note section): 1 Procedure Tolerated: No Complications and Patient tolerated well Procedure Outcome: Successful Performed By: Ambrosio Strickland
[2025-01-11] MEDS: ePHEDrine 50 MG/ML VIAL IVP (07:15)
--- NOTE | 2025-01-11 07:29 | W.PM.OBNL1 ---
Date of service: 01/11/25 Time of Service: 07:29 Informed Consent Informed Consent: Regional Anesthesia Pelvic Exam Comments: exam deferred Contractions Contraction Frequency(min): every 3 min Contraction Duration(sec): 60 Intensity: Strong Fetus A Monitor: Internal (FSE) Heart Rate Baseline: 130 Variability: Moderate (6-25 BPM) Categories: Category I FHR Rhythm: Regular Accelerations: 15 X 15 Decelerations: Variable Recurrence: Episodic Amniotic Membrane Status: Ruptured Assessment Note: variable decelerations associated with hypotension Assessment and Plan Assessment and plan (1) Spontaneous onset of labor: Status: Acute Assessment and plan: Rest encouraged and anticipate . Dr Geronimo is present on the unit and aware of patient's status. Objective Temp Pulse Resp BP Pulse Ox 98.1 F 78 16 121/67 98 01/11/25 02:13 01/11/25 07:28 01/11/25 02:13 01/11/25 07:28 01/11/25 06:36 Laboratory Results WBC 10.42 10^3/uL (4.4-10.8) 01/10/25 04:00 RBC 3.86 10^6/uL (3.93-5.22) L 01/10/25 04:00 Hgb 10.2 g/dL (11.2-15.7) L 01/10/25 04:00 Hct 31.9 % (36.0-46.0) L 01/10/25 04:00 MCV 83 fL (80-95) 01/10/25 04:00 MCH 26.4 pg (27.0-33.0) L 01/10/25 04:00 MCHC 32.0 % (32.0-36.0) 01/10/25 04:00 RDW 13.4 % (11.7-14.6) 01/10/25 04:00 Plt Count 286 10^3/uL (130-400) 01/10/25 04:00 MPV 10.7 fL (8.0-11.0) 01/10/25 04:00 ABO/Rh O Positive 01/10/25 04:00 Antibody Screen NEGATIVE 01/10/25 04:00 Subjective Patient Reports: New Complaints Interval history since last seen: Elise is comfortable with epidural. She had episodes of hypotension and she received ephedrine IV. She reported nausea during this episode. Results Hemoglobin/Hematocrit: Hgb 10.2 g/dL (11.2-15.7) L 01/10/25 04:00 Hct 31.9 % (36.0-46.0) L 01/10/25 04:00 Abnormal Lab Findings: Abnormal Labs 01/10/25 04:00 RBC 3.86 L Hgb 10.2 L Hct 31.9 L MCH 26.4 L
[2025-01-11] MEDS: Oxytocin/Normal Saline 30 UNIT/500 ML BAG 167 UNITS IV (08:45)
--- NOTE | 2025-01-11 09:25 | W.OBDELIVERY ---
Date of service: 01/11/25 Time of Service: 09:25 OB Labor/ Delivery Information Baby A Delivery Delivery Method: Spontaneaous Presentation: Cephalic Vertex Position: Left Occipital Anterior Cord Description-Baby A: 3 Vessels Amniotic Fluid: Clear Estimated Blood Loss: 150 Delivery Outcome: Liveborn Transferred: Remains with Mother Note: Elise had excellent effect from epidural. Hypotension treated with ephedrine and IV bolus. FHTs 120s during first stage of labor with variable decels associated with hypotension. FHTs 120s in second stage. She progressed to full dilation and began pushing. Second stage huddle was done. Spontaneous delivery of male infant delivered in ZORAIDA position. Baby was placed on mother's abdomen and dried and stimulated. Spontaneous cry. Cord was clamped and cut by . The placenta delivered spontaneously and appears to by intact with a three vessel cord. Pitocin 30 units was administered prior to delivery of the placenta. The perineum was inspected and a small perineal abrasion repaired. The baby did breastfeed. After delivery, Mother and baby and father of the baby were stable and bonding well in the delivery room and there were no complications. Providers Nurse Senior Financial Consultant: Kaia Batista Nurse: Mihai Cheng Nurse: Shanna Pederson Labor/Delivery Information Number of Babies in Womb: 1 Steroids Given: None Reason Steroids Not Administered: N/A Group Beta Strep: Negative Antibiotics Administered: No Rubella Status: Nonimmune Blood Type: O+ Maternal Complications: None Shoulder Dystocia: No Stages of Labor Onset of Labor Date: 01/10/25 Onset of Labor Time: 00:30 Complete Dilatation Date: 01/11/25 Complete Dilatation Time: 08:00 Labor - Stage 1 Duration: 31 hours and 30 minutes Delivery Date-Baby A: 01/11/25 Delivery Time-Baby A: 08:43 Labor Stage 2 Duration: 43 minutes Placenta Delivery Date-Baby A: 01/11/25 Placenta Delivery Time-Baby A: 08:52 Labor-Stage 3 Duration: 9 minutes Total Length of Labor-Baby A: 32 hours and 13 minutes Placenta Cultured: No Placenta Status: Delivered Baby A Infant Gender: Male Gestational Status: Early Term (37-38.6 wks) Gestational Age in Weeks/Days: 37 Weeks and 4 Days Score-1 Minute Interval(Baby A) Heart Rate-1 minute: 100 BPM or Greater Respiratory Effort- 1 minute: Spontaneous/Strong Cry Muscle Tone-1 minute: Active Movement Reflex Response-1 minute: Minimal Response Color-1 minute: Bluish Hands or Feet Total Score-1 minute: 8 Score-5 Minute Interval(Baby A) Heart Rate- 5 minute: 100 BPM or Greater Respiratory Effort-5 minute: Spontaneous/Strong Cry Muscle Tone-5 minute: Active Movement Reflex Response-5 minute: Prompt Response Color-5 minute: Bluish Hands or Feet Total Score- 5 minute: 9 Interventions Repair of Laceration Type: Perineal, Laceration Extension: First Degree. Sponge Count Correct: No Sponges Placed in Vagina, Sharp Count Correct: Yes. Laceration Repair Note: one interrupted suture
--- NOTE | 2025-01-11 16:27 | ANES.POST_ITS ---
Postoperative Evaluation Date, Time and Location Date Performed: 01/11/25 Time Performed: 16:27 Patient Location: Obstetrics Vital Signs Most Recent Imported Vital Signs: Most Recent Vital Signs Temp Pulse Resp BP Pulse Ox 36.7 C 85 16 112/59 L 99 01/11/25 13:10 01/11/25 13:15 01/11/25 13:10 01/11/25 13:15 01/11/25 09:13 Pain Score Most Recent Pain Score: Most Recent Pain Score Pain Level [Abdomen] 0 01/11/25 13:10 Pain Level 0 01/11/25 12:15 Assessment Mental Status: Awake (Alert & Oriented to Patient Baseline) Airway and Respiratory Function: Patent airway with normal (patient baseline) respiratory exam Cardiovascular Function: Hemodynamically Stable Hydration Status: Adequately Hydrated Nausea & Vomiting: No Nausea or Vomiting Pain: Pt. Denies Any Pain Peripheral Nerve Block: Other (Labor Epidural) Postoperative Comments:: Epidural cath removed by staff development coordinator.
[2025-01-12 09:00] VITALS: BP 122/78; PULSE 74; RESP 14; TEMP 36.6; O2SAT 100
[2025-01-12] MEDS: Docusate Sodium 100 MG CAP PO ×2 (09:04→21:35)
[2025-01-12] MEDS: Sertraline 100 MG TAB PO (09:04)
--- NOTE | 2025-01-12 11:14 | W.PM.OBPNV1 ---
Date of service: 01/12/25 Time of Service: 10:20 Assessment and Plan Assessment and plan (1) Term delivered: Status: Acute Assessment and plan: A: PPD#1, normal recovery, satisfied with experience off to a good start P: Routine PP care, support and LC consult MMR offered to pt, she states maybe later, perhaps on day of discharge Discharge planned for tomorrow Pt states she is undecided regarding choice of contraception Subjective Subjective Patient comments: No complaints, Pain well controlled, Tolerating diet and Flatus present Patient's Mood: happy, states she feels better today than all last week baby status: Doing well, Nursing well and Rooming in [place] feeding status: Exclusively breast feeding Exam Physical Exam Vital signs: Temp Pulse Resp BP Pulse Ox 97.8 F 74 14 122/78 100 01/12/25 09:00 01/12/25 09:00 01/12/25 09:00 01/12/25 09:00 01/12/25 09:00 Vital Signs Reviewed: Yes Constitutional Constitutional: no acute distress, obese and cooperative HEENT Exam HEENT Exam: Normal Neck Exam Neck Exam: Normal Breast Exam Bilateral: Breast Exam: Normal and Soft Nipple Exam: Normal and Uninjured Respiratory Exam Respiratory Exam: Normal Cardiovascular Exam Cardiovascular Exam: Normal Abdominal Exam Abdomen: Other (soft, nontender) Fundal Exam Fundus: Below Umbilicus and Firm Rectal Exam Rectal Exam: Not Done Exam Perineum: Repair Intact Extremities Exam Extremity Exam: Normal, Full ROM and Warm to Touch Back/Spine/Pelvis Exam Back Exam: Normal Skin Exam Skin Exam: Normal Neurological Exam Neurological Exam: Normal Psychiatric Exam Psychiatric Exam: Normal
[2025-01-12 20:08] VITALS: BP 122/76; PULSE 71; RESP 18; TEMP 36.7; O2SAT 100
--- NOTE | 2025-01-12 22:35 | NUR.NOTE ---
Nursing Note: This RN entered room. Had to perform pt teaching regarding waking the baby up to feed every 2-3 hours. The pt was just letting baby sleep until baby woke up. Handed bab janeo mom after checking diaper to perfomr skin to skin. Pt chose to use footbal hold on left side. Encouraged pt to stimulate baby to stay awake at breast for at least 10-15mins per feeding per side. Encouraged FOB to assist mom and help with holding baby's hands, stimulating etc. Observed several good latches, sucks and heard audible swallows. Encouraged pt to call for assistance.
[2025-01-13] MEDS: Docusate Sodium 100 MG CAP PO (08:52)
[2025-01-13] MEDS: Sertraline 100 MG TAB PO (08:52)
[2025-01-13] MEDS: Acetaminophen 325 MG TAB 650 MG PO (08:53)
[2025-01-13 09:00] VITALS: BP 111/64; PULSE 90; RESP 14; TEMP 36.6; O2SAT 100
[2025-01-13] MEDS: Hamamelis Leaf/Glycerin 100 EACH BOX PR (10:30)
[2025-01-13] MEDS: Dibucaine 1% 28 GM TUBE TP (10:33)
[2025-01-13] MEDS: Measles, Mumps, & Rubella Vaccine 0.5 ML VIAL SC (10:34)
--- NOTE | 2025-01-13 12:36 | DSE_ITS ---
Date of service: 01/13/25 Time of Service: 12:36 DS: Diagnosis Discharge Diagnosis (1) Term delivered: Status: Acute Asessment and Plan: Caring for baby independently. Pain is managed well with oral analgesics. Voiding without difficulty. well. Baby has lost weight and she has a feeding plan developed with Edita Coley - stable mother and baby , Post day 2 P - Discharge to home. Routine post instructions. [facility] Discharge Plan Disposition Patient Disposition: Home Condition: Good Discharge Details Reason For Visit: Labor Admit Date/Time: 01/10/25 03:47 Admit Provider: Kaia Batista Attending Provider: Kaia Batista Primary Care Provider: Ashkan Palencia Hospital Course Hospital Course: Pt admitted in prodromal labor, received therapeutic rest on HD#2 after overnigh t observation with little progression, woke up with palpable cervical change, active labor increased after SROM ocurred on HD#3, under epidural anesthesia. Normal course, discharge on PPD#2 (HD#5) Home Meds and New Rx's Prescriptions: No Action sertraline 100 mg tablet 100 mg PO DAILY Qty: 90 4RF cyanocobalamin (vitamin B-12) 500 mcg tablet 500 mcg PO DAILY 30 Days Qty: 30 6RF ferrous sulfate [Feosol] 325 mg (65 mg iron) tablet 325 mg PO DAILY Qty: 60 3RF cholecalciferol (vitamin D3) 50 mcg (2,000 unit) capsule 50 mcg PO DAILY Qty: 60 0RF One-A-Day -1 27 mg iron- 800 mcg-235 mg capsule 1 cap PO DAILY ondansetron 4 mg tablet,disintegrating 4 mg PO Q8H PRN (Reason: nausea and vomiting) Qty: 2 0RF simethicone 80 mg tablet,chewable 80 mg PO BID PRN10 Days Qty: 30 0RF Lactobacillus acidophilus 500 million cell Capsule 500 mmu cells PO BID 30 Days Qty: 60 0RF omeprazole 20 mg capsule,delayed release(DR/EC) 20 mg PO DAILY 84 Days Qty: 84 0RF Discharge Instructions Additional Instructions: Please keep your 2 and 6 week appointments with the midwives, call for any and all concerns Stand Alone Forms: BC Instructions, BC Post Vaginal Deliver Activity:: Activity as Tolerated Equipment/Supplies:: No Equipment Needed Diet:: Normal Diet Discharge Orders Discharge Orders: Discharge Order (Routine); Ordered 01/13/25 Ordered By: Kaia Batista OB:DS Summary Summary Vaginal Delivery Method: Spontaneaous Episiotomy Description: None Laceration Description: Perineal Laceration Extension: First Degree Contraception Discussed Contraception Discussed: Yes Contraceptive Plan: Undecided, [place] Infant Gender-Baby A: Male weight: 6 lb 15.995 oz Status at Discharge Functional status at discharge: independent ambulation Overall status at discharge: patient is back to baseline Mental Status: mental status grossly normal Speech and Movement: speech and movement normal Mood: congruent mood Affect: normal affect Exam Physical Exam Vital signs: Temp Pulse Resp BP Pulse Ox 97.8 F 90 14 111/64 100 01/13/25 09:00 01/13/25 09:00 01/13/25 09:00 01/13/25 09:00 01/13/25 09:00 Vital Signs Reviewed: Yes Constitutional Constitutional: no acute distress HEENT Exam HEENT Exam: Normal Respiratory Exam Respiratory Exam: Normal Cardiovascular Exam Cardiovascular Exam: Normal Fundal Exam Fundus: Below Umbilicus and Firm Extremities Exam Extremity Exam: Normal Skin Exam Skin Exam: Normal Psychiatric Exam Psychiatric Exam: Normal PFSH All Active Problems (Updated 01/12/25 @ 11:16 by Suzan Warren) Anemia (Chronic) Term delivered (Acute) H/O gastric bypass (Acute) [place]-[facility] in 2022 Rubella non-immune status, antepartum (Acute) High BMI (Acute) 32 Medical History (Updated 01/12/25 @ 11:16 by Suzan Warren) Anemia affecting first Spontaneous onset of labor Infertility History of hysterosalpingogram 11/2022. Patent L fallopian tube, ? R fallopian tube patent. Migraine Depression Surgical History (Updated 01/03/25 @ 00:03 by CARLOS MCKEON) Hx of tonsillectomy H/O gastric bypass H/O oophorectomy Family History (Updated 07/17/24 @ 09:33 by Kaia Batista CNM) Sister Hip dysplasia Other Diabetes Heart disease Hyperlipidemia Hypertension Social History (Updated 04/17/22 @ 15:22 by Erin Díaz MD) Smoking/Tobacco Use Status: Former Tobacco Use Quit Date: 01/16/22 Quit status: has quit before Smoking risk assessment performed?: Yes Alcohol Intake: never Drug use: Never Household members: significant other Housing: house current occupation: [employer] Associate Sexually active: Yes Do you think of yourself as: straight/heterosexual Current gender identity: female Do you feel safe at home: Yes Do you feel safe in your relationship?: Yes Female Reproductive History Menstrual Age of Menarche: 12 Duration of menses: 3-5 days control method: none History History 1 Para 0 Hx # Term Pregnancies 0 Multiple births 0 Hx # Pregnancies 0 Ectopic pregnancies 0 AB induced 0 Hx Number of Living Children 0 AB spontaneous 0 DS: Data Vitals/I&O Vitals and I&O: Vital Signs Temperature 97.8 F 01/13/25 09:00 Temperature 98.1 F 01/10/25 22:47 Temperature Source Oral 01/13/25 09:00 Pulse 90 01/13/25 09:00 Pulse 63 01/10/25 22:47 Pulse Rhythm Regular 01/12/25 20:07 Respiratory Rate 14 01/13/25 09:00 Respiratory Depth Normal 01/11/25 19:49 Blood Pressure 111/64 01/13/25 09:00 Blood Pressure 131/71 01/10/25 22:47 Blood Pressure Mean 79 01/13/25 09:00 Pulse Oximetry 100 01/13/25 09:00 Oxygen Delivery Method Room Air 01/10/25 04:31 Oxygen Flow Rate 0 01/10/25 04:31 Pain Level 2 01/13/25 09:00
== END 2025-01-13 14:40 | disposition home or self-care (01) | DRG 807 ==
LOC: BCD 03:51 → OBS 03:51
PROVIDERS: Admitting Provider Advanced Practice Midwife; PCP Family Medicine; Visit Provider Advanced Practice Midwife
DX: O26.53 Maternal hypotension syndrome, third trimester (principal); Z37.0 Single live birth; O99.844 Bariatric surgery status complicating childbirth; O99.344 Other mental disorders complicating childbirth; F32.A Depression, unspecified; O99.02 Anemia complicating childbirth; D64.9 Anemia, unspecified; O63.0 Prolonged first stage (of labor); Z3A.37 37 weeks gestation of pregnancy; O70.0 First degree perineal laceration during delivery; Z28.39 Other underimmunization status
CPT/HCPCS: 85027; 86850; 86900; 86901; 90707; 59025; J2270; J3010

== ENCOUNTER 2025-01-16 23:11 | Emergency (ER) | payer MEDICAID, SELFPAY ==
[2025-01-16 23:13] VITALS: BP 108/50; PULSE 80; RESP 16; TEMP 36.6; O2SAT 98
[2025-01-16 23:19] VITALS: BP 108/50; PULSE 80; RESP 16; TEMP 36.6; O2SAT 98
--- NOTE | 2025-01-16 23:19 | W.ED.GENAD ---
Discharge Plan Disposition Patient Disposition: Home Condition: Good Discharge Details Clinical Impression: UTI (urinary tract infection) Primary Care Provider: Ashkan Palencia ED Provider: Glenn Lopez Meds and New Rx's Prescriptions: New cephalexin 500 mg capsule 500 mg PO TID Qty: 15 0RF Continued sertraline 100 mg tablet 100 mg PO DAILY Qty: 90 4RF Lactobacillus acidophilus 500 million cell Capsule 500 mmu cells PO BID 30 Days Qty: 60 0RF Discharge Instructions Instructions: Urinary Tract Infection, Adult ED Additional Instructions: You were seen in the ED for onset of right lower quadrant abdominal pain. Overall your workup including labs and CT scan are reassuring. It does appear you have a urinary tract infection so we will place you on antibiotics. Please follow-up with primary care at [facility] or OB here at [facility] in 1 week. Return to ED for any fever, new or worsening pain, vomiting, increased vaginal bleeding or discharge, other concerns. Referrals: Ashkan Palencia [Primary Care Provider, Medicine] HPI General Mode of arrival: EMS. Date/Time Provider Initiated Documentation: 01/16/25 23:19. Limitations to Documentation: no limitations. Information obtained by: patient, RN notes reviewed and old records reviewed. HPI Narrative: Patient presents to ED with onset of right lower quadrant abdominal pain that woke her from sleep. She is 5 days from a spontaneous vaginal delivery. She reports the pain as crampy in nature. She has not had excessive bleeding that she is aware of. She does have some urinary burning. Denies any flank or back pain. Denies any nausea or vomiting. Has been managing pain at home with acetaminophen and doing well. She has no reported fever. She does have a prior history of gastric bypass. Related Data Home Medications ?Medication ?Instructions ?Recorded ?Confirmed sertraline 100 mg tablet 100 mg PO DAILY #90 tabs 10/16/24 01/16/25 Lactobacillus acidophilus 500 500 mmu cells PO BID antibiotic 01/02/25 01/16/25 million cell capsule use 30 days #60 caps cephalexin 500 mg capsule 500 mg PO TID #15 caps 01/17/25 Previous Rx's ?Medication ?Instructions ?Recorded sertraline 100 mg tablet 100 mg PO DAILY #90 tabs 10/16/24 Lactobacillus acidophilus 500 500 mmu cells PO BID antibiotic 01/02/25 million cell capsule use 30 days #60 caps cephalexin 500 mg capsule 500 mg PO TID #15 caps 01/17/25 Allergies Allergy/AdvReac Type Severity Reaction Status Date / Time laundry detergent AdvReac Mild rash Uncoded 01/16/25 23:23 Exam Narrative Exam Narrative: Const: WDWN female in NAD. VS per triage. HEENT: NC/AT. Normal facial exam. Neck: Supple. Trachea midline. Lungs: Normal respiratory effort. Cor: RRR. Good radial pulses. GI: Soft/ND/NT. There is no guarding or rebound present. Neuro: A+O x 3. Normal speech, mentation, gait. Cranial nerves II - XII grossly intact. No gross motor or sensory deficit. Ext: No C/C/E. Medical Decision Making 24-year-old female presenting 5 days with onset of right lower quadrant abdominal pain described as cramping in nature. No report of fever, vomiting, diarrhea. No back or flank pain but does report burning with urination. Has not had significant bleeding in the term. Abdomen is relatively benign and there is no guarding or rebound in the right lower quadrant. Differential includes complications, UTI, kidney stone, less likely appendicitis. Will place IV and obtain laboratory studies, urinalysis. Will give fluids and ketorolac as a single dose. CT scan of the abdomen pelvis ordered. 01:30 - Patient's labs overall are reassuring. White count is normal with normal differential. Her anemia is stable. Potassium a little low at 3.4 otherwise unremarkable BMP. Liver function and lipase normal. Urinalysis with blood and leukocyte esterase, 10-20 white cells and only few epithelial cells. Moderate bacteria so this is suggestive of UTI. CT scan per preliminary radiology read with no acute findings. Specifically there is no kidney stone or appendicitis. Uterus is enlarged and heterogeneous as expected otherwise no acute findings. On repeat exam patient is feeling much better after fluids and ketorolac. Abdomen is completely soft and nontender. Case discussed with OB, Dr. Geronimo. Will plan 5-day course of cephalexin and follow-up with PCP at [facility] or [facility]. Return precautions provided. Medical Records Medical records reviewed: Yes I reviewed the patient's medical records. Medical records narrative: OB notes/discharge summary Lab Data Lab results reviewed: Yes I reviewed the patient's lab results. Lab results narrative: see MDM PFSH All Active Problems (Updated 01/17/25 @ 01:34 by Glenn Lopez MD) UTI (urinary tract infection) (Acute) Anemia (Chronic) Term delivered (Acute) H/O gastric bypass (Acute) [facility]-[facility] in 2022 Rubella non-immune status, antepartum (Acute) High BMI (Acute) 32 Medical History Anemia affecting first Infertility History of hysterosalpingogram 11/2022. Patent L fallopian tube, ? R fallopian tube patent. Migraine Depression Surgical History Hx of tonsillectomy H/O gastric bypass H/O oophorectomy Family History (Updated 07/17/24 @ 09:33 by Kaia Batista CNM) Sister Hip dysplasia Other Diabetes Heart disease Hyperlipidemia Hypertension Social History Smoking/Tobacco Use Status: Former Tobacco Use Quit Date: 01/16/22 Quit status: has quit before Smoking risk assessment performed?: Yes Alcohol Intake: never Drug use: Never Substance use type: does not use Household members: significant other Housing: house current occupation: [employer] Associate Sexually active: Yes Do you think of yourself as: straight/heterosexual Current gender identity: female Do you feel safe at home: Yes Do you feel safe in your relationship?: Yes Female Reproductive History Menstrual Age of Menarche: 12 Duration of menses: 3-5 days control method: none History History 1 Para 0 Hx # Term Pregnancies 0 Multiple births 0 Hx # Pregnancies 0 Ectopic pregnancies 0 AB induced 0 Hx Number of Living Children 0 AB spontaneous 0
--- NOTE | 2025-01-16 23:30 | DI.CT_ITS ---
Exam(s) CT ABDOMEN PELVIS W EXAM: CT ABDOMEN PELVIS W CLINICAL HISTORY: 5 days post ; rlq pain. TECHNIQUE: Imaging Protocol: Axial computed tomography images with coronal and sagittal reformatted images were created and reviewed CONTRAST MATERIAL: Intravenous: Omnipaque 350 Contrast volume:100 ml Oral: yes no COMPARISON: US US PELVIS TRANSVAGINAL from 02/03/2022 FINDINGS: ABDOMEN and PELVIS: Lung Bases: No acute findings. Liver: The liver is enlarged at 27 cm in length. Normal density. No suspicious mass. Gallbladder and biliary tract: No radiodense calculus. No wall thickening or pericholecystic fluid. No biliary dilation. Pancreas: Normal density. No abnormal calcifications or inflammatory process. No evidence of mass. Spleen: Mildly enlarged. Normal contour. No focal lesions. Kidneys: Normal size, contour and axis. Tiny nonobstructing stone mid pole. No obstructive uropathy. No suspicious masses seen. Adrenal glands: No masses seen. Vasculature: Abdominal aorta non-dilated. Soft tissues: Unremarkable. Bladder: Empty. Not able to be evaluated. Bowel: Suture material at stomach. No obstruction. No bowel wall thickening. Peritoneal cavity: No ascites. No focal collection. No mesenteric inflammatory response. No free air. Bones: Unremarkable for age. Reproductive organs: Unremarkable the uterus is enlarged, consistent with status. Lymph nodes: No pathologically enlarged lymph nodes. IMPRESSION:: No acute abnormality in the abdomen or pelvis. Enlarged uterus consistent with recent status. Mild hepatosplenomegaly. The preliminary [facility] report was reviewed. RADIATION DOSE DELIVERED: 807mGy.cm Total DLP DATA REPOSITORY: All CT scans at this facility are submitted to the National Radiology Data Registry (NRDR) Dose Index Registry (DIR) with the [employer] (ACR). RADIATION OPTIMIZATION: All CT scans at this facility use at least one of these dose optimization techniques: automated exposure control; mA and/or kV adjustment per patient size (includes targeted exams where dose is matched to clinical indication); or iterative reconstruction.
[2025-01-16 23:51] LABS: Abs Immature Grans 0.02 10^3/uL (0.0-0.06); HCT 33.0 % (36.0-46.0); HGB 10.6 g/dL (11.2-15.7); Immature Grans % 0.2 %; MCH 26.6 pg (27.0-33.0); MCHC 32.1 % (32.0-36.0); MCV 83 fL (80-95); MPV 10.3 fL (8.0-11.0); Platelet Count 292 10^3/uL (130-400); RBC 3.98 10^6/uL (3.93-5.22); RDW 14.0 % (11.7-14.6); RDW-SD 42.0 fL; WBC 8.34 10^3/uL (4.4-10.8)
[2025-01-16] MEDS: Ketorolac 15 MG/ML VIAL IVP (23:52)
[2025-01-16] MEDS: Normal Saline - Diluent 50 ML VIAL IJ (23:55)
[2025-01-16] MEDS: Omnipaque 350 MG/ML 100 ML BTL IJ (23:55)
[2025-01-16] MEDS: Normal Saline Flush 10 ML SYR IVP (23:58)
[2025-01-16] MEDS: Normal Saline 1,000 ML 1000 ML IV (23:59)
[2025-01-17 00:15] LABS: ALT 17 U/L (14-59); AST 8 U/L (15-37); Albumin 2.5 g/dL (3.4-5.0); Alkaline Phosphatase 109 U/L (46-116); Anion Gap 11.9 mmol/L (3-11); BUN 9 mg/dL (7-18); Bilirubin, Total 0.6 mg/dL (0.2-1.0); CO2 26.1 mmol/L (21.0-32.0); Calcium 8.5 mg/dL (8.5-10.1); Chloride 106 mmol/L (98-107); Glucose 96 mg/dL (74-106); Lipase 20 U/L (<78); Potassium 3.4 mmol/L (3.5-5.1); Sodium 144 mmol/L (136-145); Total Protein 7.0 g/dL (6.4-8.2)
[2025-01-17 00:22] LABS: Glucose Negative (Negative)
[2025-01-17 00:32] LABS: C & S Indicated? Yes
--- NOTE | 2025-01-17 01:17 | DI.[facility]_ITS ---
PROCEDURE INFORMATION: Exam: CT Abdomen And Pelvis With Contrast Exam date and time: 01/16/2025 11:58 PM Age: 24 years old Clinical indication: Abdominal pain; Localized; Right lower quadrant (rlq); Prior surgery; Surgery date: 6+ months; Surgery type: Gastric bypass; 5 days post ; Rlq pain TECHNIQUE: Imaging protocol: Computed tomography of the abdomen and pelvis with contrast. Radiation optimization: All CT scans at this facility use at least one of these dose optimization techniques: automated exposure control; mA and/or kV adjustment per patient size (includes targeted exams where dose is matched to clinical indication); or iterative reconstruction. Contrast material: OMNIPAQUE 350; Contrast volume: 100 ml; Contrast route: INTRAVENOUS (IV); COMPARISON: No relevant prior studies are available for comparison. FINDINGS: Liver: No focal hepatic lesion identified. Gallbladder and biliary ducts: No radiodense gallbladder calculi seen. Pancreas: No CT evidence for acute pancreatitis. Spleen: Splenomegaly. Adrenal glands: No mass. Kidneys and ureters: Small nonobstructing left renal calculus. Stomach and bowel: Gastric bypass surgery. No intestinal obstruction is evident. Fluid in nondilated small bowel, nonspecific. Appendix: No evidence of appendicitis. Intraperitoneal space: No free air. Vasculature: No abdominal aortic aneurysm. Lymph nodes: Nonspecific mesenteric and retroperitoneal lymph nodes. Urinary bladder: No acute findings. Reproductive: Enlarged, heterogeneous uterus consistent with status. Bones/joints: No pertinent acute abnormality seen. Soft tissues: No pertinent acute abnormality seen. IMPRESSION: 1. No acute findings to explain reported symptoms. 2. Nonacute findings as outlined above. Dictated and Authenticated by: Yara Warren MD. Orderin John Elizabeth MD
[2025-01-17] MEDS: Cephalexin 500 MG CAP PO (02:10)
[2025-01-17 02:15] VITALS: BP 122/67; PULSE 65; RESP 16; O2SAT 99
--- NOTE | 2025-01-19 10:33 | W.ED.FU ---
Follow Up Plan: Test positive for group A strep after a visit on she was started on Keflex at that time and is feeling marked improvement I spoke with the patient today. She is encouraged to continue the Keflex. While this is not the first option for managing group A strep as she is feeling better I think this is a reasonable offline option and there is good coverage regardless. She will return immediately should she have or new or worsening complaints and will continue on the antibiotic for the next 5 days
== END 2025-01-17 02:33 | disposition home or self-care (01) ==
PROVIDERS: Emergency Provider Emergency Medicine; PCP Family Medicine
DX: N39.0 Urinary tract infection, site not specified (principal); R10.31 Right lower quadrant pain; R30.0 Dysuria
CPT/HCPCS: 99284; 99285; 96374; 36415; 80053; 83690; 87077; 96361; 74177; 81003; 81015; 85025; 87086; J1885; J3490